=== PATIENT | male | born 1995 | race Caucasian/White ===

== ENCOUNTER 2017-01-05 06:06 | Emergency (ER) | payer BC, OTHER ==
[~2017-01-05] VITALS: Ht 167.6 cm; Wt 70.3 kg
[~2017-01-05 06:06] MED LIST: CLN150C PO; HYDR118S10 PO; OMEP40CA36 PO; ONDA8TAB9 PO; SCR1T PO; TRAM50TA2 PO
--- OUTSIDE RECORDS SUMMARY | 2017-01-05 06:12 | XMS REPORT | Continuity of Care Document ---
Author Author [facility] Organization [facility] Address Unknown Phone Unavailable Allergies Active Description Code Type Severity Reaction Onset Reported/Identified Relationship to Patient Clinical Status Yes codeine [id number] Drug Allergy Unknown RASH 09/27/2013 Yes Penicillins [id number] Drug Allergy Unknown RASH 09/27/2013 Medications Problems Date Dx Coded Attending Type Code Diagnosis Diagnosed By 09/27/2013 YANET MCMAHON MD Ot 577.0 ACUTE PANCREATITIS 09/27/2013 YANET MCMAHON MD Ot 789.06 ABDOMINAL PAIN, EPIGASTRIC 09/29/2013 ANTONIO MAHER Ot 535.50 UNSP GASTRITIS GASTRODUODENITIS W/O ME 09/29/2013 ANTONIO MAHER Ot 789.09 ABDOMINAL PAIN, OTHER SPECIFIED SITE Procedures Results Encounters ACCT No. Visit Date/Time Discharge Status Pt. Type Provider Facility Loc./Unit Complaint [id number] 09/29/2013 12:04:00 2012 17:01:00 DIS Emergency ANTONIO MAHER [facility] ER LOWER ABD PAIN [id number] 09/27/2013 03:19:00 2012 04:39:00 DIS Emergency YANET MCMAHON MD [facility] ER NAUSEA,VOMITING
[2017-01-05] MEDS ORDERED: ONDANSETRON 4 MG (ZOFRAN) ORAL DISSOLVE TAB SL STA (06:17)
[2017-01-05 06:45] LABS: BILIRUBIN,URINE NEGATIVE (NEGATIVE); KETONES,URINE NEGATIVE (NEGATIVE); LEUKOCYTE ESTERASE ,URINE NEGATIVE (NEGATIVE); NITRITE,URINE NEGATIVE (NEGATIVE); PH,URINE 6 (5-9); PROTEIN,URINE 1+ (NEGATIVE); UROBILINOGEN,URINE 1 MG/DL (NORMAL)
[2017-01-05 06:48] LABS: BASOPHILS % (AUTO) 0 % (0-10); EOSINOPHILS # (AUTO) 0.1 10^3/uL (0.0-0.3); EOSINOPHILS % (AUTO) 2 % (0-10); LYMPHOCYTES # (AUTO) 2.9 X 10^3 (1.0-4.0); LYMPHOCYTES % (AUTO) 56 % (12-44); MEAN CORPUSCULAR HEMOGLOBIN 31 PG (25-34); MEAN CORPUSCULAR HGB CONC 34 G/DL (32-36); MEAN CORPUSCULAR VOLUME 89 FL (80-99); MEAN PLATELET VOLUME 9.5 FL (7.4-10.4); MONOCYTES # (AUTO) 0.6 X 10^3 (0.0-1.0); MONOCYTES % (AUTO) 11 % (0-12); NEUTROPHILS # (AUTO) 1.7 X 10^3 (1.8-7.8); NEUTROPHILS % (AUTO) 31 % (42-75); PLATELET COUNT 243 10^3/uL (130-400); RED BLOOD COUNT 4.76 10^6/uL (4.35-5.85); RED CELL DISTRIBUTION WIDTH 12.4 % (10.0-14.5); WHITE BLOOD COUNT 5.3 10^3/uL (4.3-11.0)
--- NOTE | 2017-01-05 06:49 | ED GI ---
General Chief Complaint: Abdominal/GI Problems Stated Complaint: VOMITING Nursing Triage Note: PT TO ED 10 W/ S.O. FOR C/O N/V ONSET X3-4WKS WHEN WAKING ET GETTING READY FOR WORK. STATES "I'M VOMITING UP UNDIGESTED FOOD." NO OTHER C/O VOICED Sepsis Screen: No Definite Risk Source of Information: Patient History of Present Illness Time Seen By Provider: 06:15 Initial Comments PT C/O NAUSEA AND VOMITING EVERY MORNING FOR 3 -4 WEEKS--WHEN HE IS GETTING READY FOR WORK HAS VOMITED/ HAD DRY HEAVES X 3-4 TIMES THIS AM HAS HAD DIARRHEA ONCE OR TWICE IN THE LAST MONTH NO ABDOMINAL PAIN, EXCEPT RIGHT WHEN HE IS VOMITING NO FEVER NO CHANGE IN APPETITE SYMPTOMS ARE NO DIFFERENT TODAY HAS NOT TAKEN ANYTHING FOR SYMPTOMS HAS NOT SOUGHT CARE AT ANY TIME FOR THIS PROBLEM PCP: NONE Allergies and Home Medications Allergies Coded Allergies: Penicillins (Verified Allergy, Unknown, RASH, 09/27/13) codeine (Verified Allergy, Unknown, RASH, 09/27/13) Home Medications Omeprazole 40 Mg Capsule. #60 40 MG PO BID Prescribed by: ANTONIO SUE on 09/29/13 1634 Ondansetron Hcl 8 Mg/Tab Tab.rapdis #10 8 MG PO Q6H PRN PRN NAUSEA/VOMITING Prescribed by: ANTONIO SUE on 09/29/13 1634 Sucralfate 1 Gm/10 Ml Susp 14Days 2 TSP PO ACHS Prescribed by: ANTONIO SUE on 09/29/13 1634 Tramadol Hcl 50 Mg Tablet #14 50 MG PO Q6H PRN PRN PAIN Prescribed by: ANTONIO SUE on 09/29/13 1634 Review of Systems Constitutional: no symptoms reported EENTM: No Symptoms Reported Respiratory: No Symptoms Reported Cardiovascular: No Symptoms Reported Gastrointestinal: See HPI Diarrhea Nausea Other Genitourinary: No Symptoms Reported Musculoskeletal: no symptoms reported Skin: no symptoms reported Psychiatric/Neurological: No Symptoms Reported Endocrine: No Symptoms Reported Hematologic/Lymphatic: No Symptoms Reported Past Qicecbz-Atdqpt-Nouypt Hx Patient Social History Alcohol Use: Rarely Uses Recreational Drug Use: Yes (THC) Smoking Status: Current Everyday Smoker (1 PPD) Recent Foreign Travel: No Contact w/Someone Who Travel: No Recent Infectious Disease Expo: No Recent Hopitalizations: No Surgeries HX Surgeries: Yes (wisdom teeth removed 07/24/13) Respiratory Hx Respiratory Disorders: No Cardiovascular Hx Cardiac Disorders: No Neurological Hx Neurological Disorders: No Genitourinary Hx Genitourinary Disorders: No Gastrointestinal Hx Gastrointestinal Disorders: No Musculoskeletal Hx Musculoskeletal Disorders: No Endocrine Hx Endocrine Disorders: No HEENT HX ENT Disorders: No Cancer Hx Cancer: No Psychosocial Hx Psychiatric Problems: No Integumentary HX Skin/Integumentary Disorder: No Blood Transfusions Hx Blood Disorders: No Family Medical History Significant Family History: No Pertinent Family Hx Physical Exam Vital Signs VS - Last 72 Hours, by Label 01/05/17 06:12 Temp 96.7 Pulse 61 Resp 18 B/P 138/81 Pulse Ox 99 O2 Delivery Room Air Capillary Refill : Less Than 3 Seconds General Appearance: WD/WN no apparent distress HEENT: PERRL/EOMI Neck: normal inspection Respiratory: normal breath sounds no respiratory distress no accessory muscle use Cardiovascular: regular rate, rhythm no murmur Gastrointestinal: normal bowel sounds soft no organomegaly no pulsatile massNo distended, No guarding, No rebound, tenderness (SLIGHT EPIGASTRIC TENDERNESS)No hernia, No mass Extremities: normal inspection Back: normal inspection 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 II-XII nml as tested no motor/sensory deficits alert normal mood/affect oriented x 3 Skin: normal color warm/dry tattoos/piercings (MULTIPLE TATTOOS AND PIERCINGS) Focused Exam Lactic Acid Level Laboratory Tests Test 01/05/17 06:29 Alanine Aminotransferase (ALT/SGPT) 17U/L (0-55) Albumin 4.3G/DL (3.2-4.5) Alkaline Phosphatase 45U/L (40-136) Amylase Level 80U/L (25-125) Anion Gap 11MMOL/L (5-14) Aspartate Amino Transf (AST/SGOT) 19U/L (5-34) BUN/Creatinine Ratio 10 Blood Urea Nitrogen 8MG/DL (7-18) Calcium Level 8.5MG/DL (8.5-10.1) Carbon Dioxide Level 25MMOL/L (21-32) Chloride Level 107MMOL/L (98-107) Creatinine 0.82MG/DL (0.60-1.30) Estimat Glomerular Filtration Rate > 60 Glucose Level 101MG/DL (70-105) Lipase 62U/L (8-78) Potassium Level 4.1MMOL/L (3.6-5.0) Sodium Level 143MMOL/L (135-145) Total Bilirubin 0.6MG/DL (0.1-1.0) Total Protein 6.9G/DL (6.4-8.2) Progress/Results/Core Measures Results/Orders Lab Results Laboratory Tests Test 01/05/17 06:25 01/05/17 06:29 Range/Units Ur Tricyclic Antidepressants Screen NEGATIVE NEGATIVE Urine Amphetamines Screen NEGATIVE NEGATIVE Urine Bacteria FEW H /HPF Urine Barbiturates Screen NEGATIVE NEGATIVE Urine Benzodiazepines Screen NEGATIVE NEGATIVE Urine Bilirubin NEGATIVE NEGATIVE Urine Calcium Oxalate Crystals FEW H /LPF Urine Cannabinoids Screen POSITIVE H NEGATIVE Urine Casts NONE /LPF Urine Clarity CLEAR Urine Cocaine Screen NEGATIVE NEGATIVE Urine Color YELLOW Urine Crystals PRESENT H /LPF Urine Culture Indicated YES Urine Glucose (UA) NEGATIVE NEGATIVE Urine Ketones NEGATIVE NEGATIVE Urine Leukocyte Esterase NEGATIVE NEGATIVE Urine Methadone Screen NEGATIVE NEGATIVE Urine Methamphetamines Screen NEGATIVE NEGATIVE Urine Mucus LARGE H /LPF Urine Nitrite NEGATIVE NEGATIVE Urine Opiates Screen NEGATIVE NEGATIVE Urine Oxycodone Screen NEGATIVE NEGATIVE Urine Phencyclidine Screen NEGATIVE NEGATIVE Urine Propoxyphene Screen NEGATIVE NEGATIVE Urine Protein 1+ H NEGATIVE Urine RBC NONE /HPF Urine RBC (Auto) NEGATIVE NEGATIVE Urine Specific Iva 1.030 H 1.016-1.022 Urine Squamous Epithelial Cells 0-2 /HPF Urine Urobilinogen 1 NORMAL MG/DL Urine WBC 2-5 /HPF Urine pH 6 5-9 Alanine Aminotransferase (ALT/SGPT) 17 0-55 U/L Albumin 4.3 3.2-4.5 G/DL Alkaline Phosphatase 45 40-136 U/L Amylase Level 80 25-125 U/L Anion Gap 11 5-14 MMOL/L Aspartate Amino Transf (AST/SGOT) 19 5-34 U/L BUN/Creatinine Ratio 10 Basophils # (Auto) 0.0 0.0-0.1 10^3/uL Basophils (%) (Auto) 0 0-10 % Blood Urea Nitrogen 8 7-18 MG/DL Calcium Level 8.5 8.5-10.1 MG/DL Carbon Dioxide Level 25 21-32 MMOL/L Chloride Level 107 98-107 MMOL/L Creatinine 0.82 0.60-1.30 MG/DL Eosinophils # (Auto) 0.1 0.0-0.3 10^3/uL Eosinophils (%) (Auto) 2 0-10 % Estimat Glomerular Filtration Rate > 60 Glucose Level 101 70-105 MG/DL Hematocrit 42 40-54 % Hemoglobin 14.5 13.3-17.7 G/DL Lipase 62 8-78 U/L Lymphocytes # (Auto) 2.9 1.0-4.0 X 10^3 Lymphocytes (%) (Auto) 56 H 12-44 % Mean Corpuscular Hemoglobin 31 25-34 PG Mean Corpuscular Hemoglobin Concent 34 32-36 G/DL Mean Corpuscular Volume 89 80-99 FL Mean Platelet Volume 9.5 7.4-10.4 FL Monocytes # (Auto) 0.6 0.0-1.0 X 10^3 Monocytes (%) (Auto) 11 0-12 % Neutrophils # (Auto) 1.7 L 1.8-7.8 X 10^3 Neutrophils (%) (Auto) 31 L 42-75 % Platelet Count 243 130-400 10^3/uL Potassium Level 4.1 3.6-5.0 MMOL/L Red Blood Count 4.76 4.35-5.85 10^6/uL Red Cell Distribution Width 12.4 10.0-14.5 % Serum Alcohol < 10 <10 MG/DL Sodium Level 143 135-145 MMOL/L Total Bilirubin 0.6 0.1-1.0 MG/DL Total Protein 6.9 6.4-8.2 G/DL White Blood Count 5.3 4.3-11.0 10^3/uL My Orders Orders-LEAH NORIEGA DO Drug Screen Stat (Urine) (01/05/17 06:17) Ua Culture If Indicated (01/05/17 06:17) Ondansetron Oral Dissolve Tab (Zofran (01/05/17 06:17) Alcohol (01/05/17 06:20) Amylase (01/05/17 06:20) Cbc With Automated Diff (01/05/17 06:20) Comprehensive Metabolic Panel (01/05/17 06:20) Lipase (01/05/17 06:20) Urine Culture (01/05/17 06:25) Vital Signs/I&O Vital Sign - Last 12Hours 01/05/17 06:12 Temp 96.7 Pulse 61 Resp 18 B/P 138/81 Pulse Ox 99 O2 Delivery Room Air Blood Pressure Mean: 100 Progress Note : Progress Note GIVEN ZOFRAN , NAUSEA RESOLVED, NO VOMITING DURING ER STAY Departure Impression Impression: Primary Impression: Nausea & vomiting Additional Impression: Marijuana use Disposition: 01 HOME, SELF-CARE Condition: Stable Departure-Patient Inst. Referrals: NO,LOCAL PHYSICIAN (PCP/Family) Primary Care Physician Patient Instructions: Marijuana Use and Addiction (DC), Nausea and Vomiting, Adult (DC) Add. Discharge Instructions: NO MARIJUANA OR DRUGS OF ANY KIND NO ALCOHOL NO COFFEE, POP OR TEA CLEAR LIQUIDS--WATER, BROTH, JELLO, GATORADE BRATS DIET--BANANAS, RICE, APPLESAUCE, TOAST, SALTINES FOLLOW UP WITH DR OF CHOICE THIS WEEK FOR FURTHER CARE All discharge instructions reviewed with patient and/or family. Voiced understanding. Scripts Pantoprazole Sodium (Protonix)40 Mg Tablet.dr40 Mg PO DAILY #15 TAB Prov:LEAH NORIEGA DO 01/05/17 Ondansetron (Zofran Odt)4 Mg Tab.rapdis4 Mg PO Q4H Nausea/Vomiting #10 TAB Prov:LEAH NORIEGA DO 01/05/17 LEAH NORIEGA DO Jan 05, 2017 06:49
[2017-01-05 06:56] LABS: CALCIUM OXALATE CRYSTALS,UR FEW /LPF; SQUAMOUS EPITHELIAL CELL,UR 0-2 /HPF
[2017-01-05 07:04] LABS: ALANINE AMINOTRANSFERASE 17 U/L (0-55); ALBUMIN 4.3 G/DL (3.2-4.5); ALCOHOL < 10 MG/DL (<10); AMYLASE 80 U/L (25-125); ANION GAP 11 MMOL/L (5-14); ASPARTATE AMINO TRANSFERASE 19 U/L (5-34); BILIRUBIN,TOTAL 0.6 MG/DL (0.1-1.0); BLOOD UREA NITROGEN 8 MG/DL (7-18); BUN/CREATININE RATIO 10; CALCIUM 8.5 MG/DL (8.5-10.1); CARBON DIOXIDE 25 MMOL/L (21-32); CHLORIDE 107 MMOL/L (98-107); CREATININE SERUM 0.82 MG/DL (0.60-1.30); GFR ESTIMATED > 60; GLUCOSE 101 MG/DL (70-105); LIPASE 62 U/L (8-78); POTASSIUM 4.1 MMOL/L (3.6-5.0); SODIUM 143 MMOL/L (135-145); TOTAL PROTEIN 6.9 G/DL (6.4-8.2)
[2017-01-05] MEDS ORDERED: ONDA4TAB8 PO (07:28)
[2017-01-05] MEDS ORDERED: PANT40TA2 PO (07:29)
[2017-01-05 07:43] VITALS: BP 132/80
== END 2017-01-05 07:43 | disposition home or self-care (01) ==
LOC: EDUNIT# 06:06 → ER 06:08
DX: R11.2 Nausea with vomiting, unspecified (principal); F12.10 Cannabis abuse, uncomplicated
CPT/HCPCS: 36415; 80053; 80306; 80320; 81000; 82150; 83690; 85025; 87088; 99283

== ENCOUNTER 2019-04-20 09:20 | Outpatient (CLI) | payer BC ==
[~2019-04-20] VITALS: Ht 167.6 cm; Wt 64.4 kg
[~2019-04-20 09:20] MED LIST changes: +ONDA4TAB8 PO; +PANT40TA2 PO
[2019-04-20] MEDS ORDERED: RANI150T46 PO (09:35)
[2019-04-22] MEDS ORDERED: PANT40TA2 PO (11:37)
== END 2019-04-20 09:38 | disposition home or self-care (01) ==
LOC: PREOP 09:20
PROVIDERS: ATTEND Surgery
DX: Z01.818 Encounter for other preprocedural examination (principal)

== ENCOUNTER → 2019-04-22 | Day surgery (SDC) | payer BC ==
[~2019-04-22] VITALS: Ht 167.6 cm; Wt 64.4 kg
[~2019-04-22] MED LIST changes: +ACETAMINOPHEN 325 MG TABLET PO PRN; +HURRICAINE EXT TUBE (BENZOCAINE) ONE; +HURRICAINE EXT TUBE (BENZOCAINE) XX PRN; +HYDROcodone/APAP 5 MG/325 MG (LORTAB) TAB PO PRN; +LIDOCAINE JELLY 2% 6 ML SYRINGE MM PRN; +MIDAZOLAM 2 MG/2 ML (VERSED) VIAL IVP ONE; +MIDAZOLAM 2 MG/2 ML (VERSED) VIAL ONE; +NS IV 500 ML 500 ML IV PRN; +ONDANSETRON 4 MG/2 ML (SDV) Z0FRAN IVP PRN; +RANI150T46 PO; +fentaNYL INJECTION 100 MCG/2 ML AMP IVP ONE; +fentaNYL INJECTION 100 MCG/2 ML AMP ONE; +morphine INJ 10 MG/ML 1ML (SYR OR VIAL) IVP PRN
--- OUTSIDE RECORDS SUMMARY | 2019-04-22 11:30 | XMS REPORT | Encounter Summary ---
Author Author [facility] Address Unknown Phone Unavailable Care Team Providers Care Brazer Helper Induction Name Role Phone PCP Unavailable Encounter Details Care Team Description Date Type Department Mercedes Abreu MD [address] [place] [address] 04/08/2013 [facility] HISTORICAL CONVERSION Encounter Social History Date Tobacco Use Types Packs/Day Years Used Never Assessed Sex Assigned at Date Recorded Not on file Industry Job Start Date Occupation Not on file Not on file Not on file Travel End Travel History Travel Start No recent travel history available. documented as of this encounter Plan of Treatment Not on filedocumented as of this encounter Visit Diagnoses Not on filedocumented in this encounter
--- OUTSIDE RECORDS SUMMARY | 2019-04-22 11:30 | XMS REPORT | Clinical Summary ---
Author Author [facility] Address Unknown Phone Unavailable Care Team Providers Care Medical Administrative Technician Name Role Phone PP Unavailable Allergies Comments Active Allergy Reactions Severity Noted Date Anaphylaxis Ceclor Cefaclor Anaphylaxis Keflex Cephalexin Monohydrate Anaphylaxis Codeine Anaphylaxis Erythromycin Base Anaphylaxis Penicillins Anaphylaxis Bactrim Sulfamethoxazole Anaphylaxis Bactrim Trimethoprim Medications End Date Status Medication Sig Dispensed Refills Start Date Active diphenhydramine-acetamino take 2 tablet 0 phen (TYLENOL PM EXTRA by oral route 2 STRENGTH) 25-500 MG TABS every day at bedtime as needed for sleep Active .reconcile (MEDICATION No Sig 1 0 LIST IMPORTED) 3 Active Problems Not on file Family History Medical History Relation Name Comments Other Other Mother - Alive and well Other Other Father - Alive and well Other Other Sister #1 - is Alive, Alive and well Other Other Sister #2 - is Alive, Alive and well Relation Name Status Comments Father Alive Mother Alive Other Other Other Other Social History Date Tobacco Use Types Packs/Day Years Used Never Smoker Sex Assigned at Date Recorded Not on file Industry Job Start Date Occupation Not on file Not on file Not on file Travel End Travel History Travel Start No recent travel history available. Last Filed Vital Signs Reading Time Taken Comments Vital Sign 130/78 01/15/2012 9:44 AM CDT Blood Pressure - - Pulse - - Temperature - - Respiratory Rate - - Oxygen Saturation - - Inhaled Oxygen Concentration 75.1 kg (165 lb 8 oz) 07/06/2012 2:02 PM CDT Weight 166.4 cm (5' 5.5") 07/06/2012 2:02 PM CDT Height 27.12 07/06/2012 2:02 PM CDT Body Mass Index Plan of Treatment Health Maintenance Due Date Last Done Comments Varicella Vaccines (1 of 2007 2 - 13+ 2-dose series) DTaP,Tdap,and Td Vaccines 2013 (1 - Tdap) MMR Vaccines-Adult 2013 Influenza Vaccine (Season 06/19/2019 Ended) Pneumo-Vaccine: 65+Yrs (1 2059 of 2 - PCV13) HPV Vaccines Aged Out No longer eligible based on patient's age to complete this topic Pneumo-Vaccine: Peds (0-5 Aged Out No longer eligible based Yrs) & At-Risk Patients on patient's age to (6-64 Yrs) complete this topic Results Not on filefrom Last 3 Months
--- OUTSIDE RECORDS SUMMARY | 2019-04-22 11:31 | XMS REPORT | Encounter Summary ---
Author Author [facility] Organization [facility] Address Unknown Phone Unavailable Care Team Providers Care Building Maintenance Supervisor Name Role Phone PCP Unavailable Encounter Details Care Team Description Date Type Department Link, Onbase 12/15/2011 [facility] Scans HISTORICAL CONVERSION Social History Date Tobacco Use Types Packs/Day Years Used Never Assessed Sex Assigned at Date Recorded Not on file Industry Job Start Date Occupation Not on file Not on file Not on file Travel End Travel History Travel Start No recent travel history available. documented as of this encounter Progress Notes * Link, Onbase - 03/28/2013 2:58 AM CDT T * Link, Onbase - 03/28/2013 2:58 AM CDT T documented in this encounter Plan of Treatment Not on filedocumented as of this encounter Procedures Comments Procedure Name Priority Date/Time Associated Diagnosis HM IMAGING STUDY 04/05/2013 1:24 AM CDT documented in this encounter Results * IMAGING STUDY (04/05/2013 1:24 AM CDT) Narrative Performed At Procedure Note [facility] - 03/28/2013 2:58 AM CDT documented in this encounter Visit Diagnoses Not on filedocumented in this encounter
--- OUTSIDE RECORDS SUMMARY | 2019-04-22 11:31 | XMS REPORT | Encounter Summary ---
Author Author [facility] Organization [facility] Address Unknown Phone Unavailable Care Team Providers Care Stars Analytical Lead Name Role Phone PCP Unavailable Encounter Details Care Team Description Date Type Department Historical, Roly ProviderMD [address] Address - Needs Updating [place] [id number] 07/06/2012 [facility] HISTORICAL CONVERSION Encounter Social History Date Tobacco Use Types Packs/Day Years Used Never Assessed Sex Assigned at Date Recorded Not on file Industry Job Start Date Occupation Not on file Not on file Not on file Travel End Travel History Travel Start No recent travel history available. documented as of this encounter Last Filed Vital Signs Reading Time Taken Comments Vital Sign - - Blood Pressure - - Pulse - - Temperature - - Respiratory Rate - - Oxygen Saturation - - Inhaled Oxygen Concentration 75.1 kg (165 lb 8 oz) 07/06/2012 2:02 PM CDT Weight 166.4 cm (5' 5.5") 07/06/2012 2:02 PM CDT Height 27.12 07/06/2012 2:02 PM CDT Body Mass Index documented in this encounter Plan of Treatment Not on filedocumented as of this encounter Visit Diagnoses Not on filedocumented in this encounter
--- OUTSIDE RECORDS SUMMARY | 2019-04-22 11:31 | XMS REPORT | Encounter Summary ---
Author Author [facility] Address Unknown Phone Unavailable Care Team Providers Care Ad Clerk Name Role Phone PCP Unavailable Encounter Details Care Team Description Date Type Department Mercedes Abreu MD [address] [place], [place] [id number] 01/27/2013 [facility] Doc HISTORICAL CONVERSION Social History Date Tobacco Use Types Packs/Day Years Used Never Assessed Sex Assigned at Date Recorded Not on file Industry Job Start Date Occupation Not on file Not on file Not on file Travel End Travel History Travel Start No recent travel history available. documented as of this encounter Progress Notes * Mercedes Abreu MD - 02/24/2013 3:20 PM CDT [facility] Phone Note February 24, 2013 Patient: Patrice Campos Radahliamarylou Provider: Mercedes Abreu MD : 1995 C-O PCP: Mercedes Abreu MD Pharmacy: [facility] Work Phone: Pharmacy: Time of call: 02/24/2013 3:19 PM Caller: Mother Reason for call: Medication refill Pain Assessment: Pain assessment is not applicable. Message: AZITHROMYCIN 250 mg take 2 tablet (500MG) by oral route every day fo r 1 day then 1 tablet (250 mg) Qty 6 Call received by: Mercedes Abreu MD. Active Medications Brand Name Generic Name Dose Sig Code Stop date Tylenol Pm Extra Strength Acetaminophen/diphenhydramine 500 Mg-25 Mg take 2 tabl et by oral route every day at bedtime as needed for sleep Allergies Allergy Reaction Comment Cephalexin Monohydrate Anaphylaxis Trimethoprim Anaphylaxis Erythromycin Base Anaphylaxis Sulfamethoxazole Anaphylaxis Codeine Anaphylaxis Cefaclor Anaphylaxis Penicillins Anaphylaxis Physician Disposition: this time Recorded by: Mercedes Abreu MD Written order, Mercedes Abreu MD Medications Prescribed or Refilled Today Brand Name Dose Sig Code Quantity Refills Samples Azithromycin 250 Mg take 2 tablet (500MG) by oral route every day for 1 day th en 1 tablet (250 mg) by oral route once daily for 4 days 6 0 N Action Taken: The prescription was sent to the pharmacy via eRx Mercedes Le MD - 01/31/2013 1:27 PM CDT [facility] Phone Note January 31, 2013 Patient: Patrice Campos Christine Provider: Mercedes Abreu MD : 1995 C-O PCP: Mercedes Abreu MD Pharmacy: [facility] [employer] Work Phone: Pharmacy: Time of call: 01/31/2013 1:25 PM Caller: Mother Reason for call: Question Pain Assessment: Pain assessment is not applicable. Message: wants x-ray report Call received by: Mercedes Abreu MD. Active Medications Brand Name Generic Name Dose Sig Code Stop date Tylenol Pm Extra Strength Acetaminophen/diphenhydramine 500 Mg-25 Mg take 2 tabl et by oral route every day at bedtime as needed for sleep Allergies Allergy Reaction Comment Cephalexin Monohydrate Anaphylaxis Trimethoprim Anaphylaxis Erythromycin Base Anaphylaxis Sulfamethoxazole Anaphylaxis Codeine Anaphylaxis Cefaclor Anaphylaxis Penicillins Anaphylaxis Physician Disposition: negtive and can do activities limited by pain Recorded by: Mercedes Abreu MD Written order, Mercedes Abreu MD Action Taken: All questions were answered, patient / family voiced understandin g YT Mercedes Henderson MD - 01/27/2013 11:47 AM CDT [facility] Phone Note January 27, 2013 Patient: Patrice Andres King Provider: Mercedes Abreu MD : 1995 C-O PCP: Mercedes Abreu MD Pharmacy: [facility] [employer] Work Phone: Pharmacy: Time of call: 01/27/2013 11:45 AM Caller: Mother Reason for call: Question Pain Assessment: (Pain scale used: Ronnell) The patient is having pain in the right hand. It is sharp. The pain occurs con stantly. It's been hurting for one week. He relates the severity as five out o f ten. Message: punched something lasr week and still hurts on later right hand Call received by: Mercedes Abreu MD. Active Medications Brand Name Generic Name Dose Sig Code Stop date Tylenol Pm Extra Strength Acetaminophen/diphenhydramine 500 Mg-25 Mg take 2 tabl et by oral route every day at bedtime as needed for sleep Allergies Allergy Reaction Comment Cephalexin Monohydrate Anaphylaxis Trimethoprim Anaphylaxis Erythromycin Base Anaphylaxis Sulfamethoxazole Anaphylaxis Codeine Anaphylaxis Cefaclor Anaphylaxis Penicillins Anaphylaxis Physician Disposition: x-ray order faxed Recorded by: Mercedes Abreu MD Written order, Mercedes Abreu MD Action Taken: All questions were answered, patient / family voiced elviin g documented in this encounter Plan of Treatment Not on filedocumented as of this encounter Visit Diagnoses Not on filedocumented in this encounter
--- OUTSIDE RECORDS SUMMARY | 2019-04-22 11:31 | XMS REPORT | Encounter Summary ---
Author Author [facility] Organization [facility] Address Unknown Phone Unavailable Care Team Providers Care Curve Saw Operator Name Role Phone PCP Unavailable Encounter Details Care Team Description Date Type Department Historical, Roly ProviderMD [address] Address - Needs Updating [place] [id number] 11/19/2011 [facility] HISTORICAL CONVERSION Encounter Social History Date Tobacco Use Types Packs/Day Years Used Never Assessed Sex Assigned at Date Recorded Not on file Industry Job Start Date Occupation Not on file Not on file Not on file Travel End Travel History Travel Start No recent travel history available. documented as of this encounter Last Filed Vital Signs Reading Time Taken Comments Vital Sign 110/68 11/19/2011 3:23 PM HOME HOSPICE AIDE Blood Pressure - - Pulse - - Temperature - - Respiratory Rate - - Oxygen Saturation - - Inhaled Oxygen Concentration 73 kg (161 lb) 11/19/2011 3:23 PM HOME HOSPICE AIDE Weight 167.6 cm (5' 6") 11/19/2011 3:23 PM HOME HOSPICE AIDE Height 25.99 11/19/2011 3:23 PM HOME HOSPICE AIDE Body Mass Index documented in this encounter Plan of Treatment Not on filedocumented as of this encounter Visit Diagnoses Not on filedocumented in this encounter
--- OUTSIDE RECORDS SUMMARY | 2019-04-22 11:31 | XMS REPORT | Encounter Summary ---
Author Author [facility] Address Unknown Phone Unavailable Care Team Providers Care Casket Assembler Metal Name Role Phone PCP Unavailable Encounter Details Care Team Description Date Type Department Link, Onbase 10/30/2011 [facility] Scans HISTORICAL CONVERSION Social History Date Tobacco Use Types Packs/Day Years Used Never Assessed Sex Assigned at Date Recorded Not on file Industry Job Start Date Occupation Not on file Not on file Not on file Travel End Travel History Travel Start No recent travel history available. documented as of this encounter Progress Notes * Link, Onbase - 03/28/2013 2:53 AM CDT T documented in this encounter Plan of Treatment Not on filedocumented as of this encounter Visit Diagnoses Not on filedocumented in this encounter
--- OUTSIDE RECORDS SUMMARY | 2019-04-22 11:31 | XMS REPORT | Encounter Summary ---
Author Author [facility] Organization [facility] Address Unknown Phone Unavailable Care Team Providers Care Materials Branch Chief Name Role Phone PCP Unavailable Encounter Details Care Team Description Date Type Department Link, Onbase 01/28/2013 [facility] Scans HISTORICAL CONVERSION Social History Date [...] Procedure Name Priority Date/Time Associated Diagnosis HM EXTERNAL XRAY 04/09/2013 8:13 PM CDT HM EXTERNAL XRAY 04/09/2013 8:13 PM CDT documented in this encounter Results * HM EXTERNAL XRAY (04/09/2013 8:13 PM CDT) Narrative Performed At Procedure Note Historical, [facility] Documents - 04/09/2013 6:23 AM CDT * HM EXTERNAL XRAY (04/09/2013 8:13 PM CDT) Narrative Performed At Procedure Note Historical, [employer] Documents - 04/09/2013 6:23 AM CDT documented in this encounter Visit Diagnoses Not on filedocumented in this encounter
--- OUTSIDE RECORDS SUMMARY | 2019-04-22 11:31 | XMS REPORT | Encounter Summary ---
Author Author [facility] Organization [facility] Address Unknown Phone Unavailable Care Team Providers Care Wood Model Maker Name Role Phone PCP Unavailable Encounter Details Care Team Description Date Type Department Aubrey Gutiérrez MD [address] [place] [address] 07/22/2011 [facility] HISTORICAL CONVERSION Social History Date Tobacco Use Types Packs/Day Years Used Never Assessed Sex Assigned at Date Recorded Not on file Industry Job Start Date Occupation Not on file Not on file Not on file Travel End Travel History Travel Start No recent travel history available. documented as of this encounter Progress Notes * Aubrey Gutiérrez MD - 07/22/2011 2:40 PM CDT [facility] Patrice King July 22, 2011 Pain Assessment: (Pain scale used: Tracywski) The patient is having pain in the throat. It is sore. The pain only occurs in the morning. It's been hurting for one week. He relates the severity as five o ut of ten. The patient is having pain in the hand, left, small finger. It aches. The disc omfort occurs before meals. It's been hurting for one day. He relates the ajay rity as eight out of ten. Scheduled Follow-up History of Present Illness This 15 Years 10 Months old male presents today for a regularly scheduled follo w-up appointment. New pt. 1. Hurt left 5th finger last night playing football. Thinks it was bent back. N o numbness or tingling. Has never injured his finger before 2. Right shoulder has always been lax. He has never discussed this with his moth er. He doesn't know if he has ever completely dislocated it. Does not awaken wit h pain in this shoulder. 3. Hx of exercise induced asthma. Past week has been requiring albuterol about e very 4-6 hours. Afebrile. Albuterol controls symptoms well. No CP or SOB. Does n ot feel ill. Asthma 493.90 Past Medical History There is a past medical history of: . No surgeries or hospital admissions Current Medications Allergies Allergy Reaction Comment Penicillins Anaphylaxis Family History The family history was reviewed and updated. Father: Medical conditions: Alive & well Mother: Medical conditions: Alive & well Sister: Medical conditions: Alive & well Sister: Medical conditions: Alive & well Social History Lives in [place]. Lives with mom and stepdad. Stepdad in . Mother has a ian on Physical Exam Vital Signs BP: 101/70 left arm seated Pulse: 66 Respiratory rate: 20 Height: 66.50 inches / 168.91 cm Weight: 162.00 lbs / 73.48 kg BMI: 25.80 kg/m2 Temperature: 98.00 F (36.67 C) orally SaO2: 97 % on room air Constitutional: Well developed, well nourished, in no apparent distress. Well a ppearing. Alert and oriented x3. Non septic appearing. Appears well hydrated. Lymph: No palpable cervical lymphadenopathy. Head: Normocephalic, atraumatic Eyes: EOM's intact Ears: Hearing grossly intact, TM's normal Nose: Nares patent without exudate Mouth: Mucous membranes moist, tongue midline. Oropharnyx non erythematous. Ton sils non edematous. No tonsillar exudate. Neck: No thyromegaly. Supple. No mennigeal signs. Lungs: Clear to auscultation bilaterally, no wheezes, rales or rhonchi. Good a ir exchange. Heart: Regular rate and rhythym without murmur or gallop Abdomen: Soft. Non tender. Non distended. Normal bowel sounds. Vascular: Cap refill in 5th finger normal Extremities: No lower extremity edema. Left 5th finger with tenderness over the proximal phalanx. Some edema. No tenderness at MCP or on the carpals. No pain on the right shoulder. Pulling shoulder with mild force produces a deformity in the shoulder but no clear dislocation Neurologic: No gross motor deficit. Cranial nerves grossly intact upon inspecti on. Sensation in 5th finger normal. Chronic Conditions Summary Asthma 493.90 Today's Assessment and Plan Asthma exacerbation 493.92 - Mild Finger fracture 816.00 - Active Xray per my reading shows an oblique intraarticular fracture of the distal porti on of the left proximal phalanx with mild displace. Neurovascularly intact. 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 The patient's medications, their interactions and possible side effects were rev iewed. Continue current medications and therapy. Call back if you are not better. Call if your temperature is over 100.4 F. All ordered therapeutic and diagnostic tests were discussed as well as typical m edication side effects. The patient understood and voiced agreement with the pl an. 1. Patient is strong, stable, hydrated, alert, warm and perfusing. Breathing com fortably. Treat with steroid burst and continue albuterol prn. Treatment options / additional testing options discussed. Symptomatic treatment with rest/oral hy dration. Acetaminophen and/or ibuprofen as needed for discomfort. Caregiver edu cated on signs of decompensation to watch for. Return or call for new or worseni ng symptoms. Return or call for no improvement in 2 days. Return or call for no resolution in 5 days. All questions answered to caregivers satisfaction. Caregi amalia acknowledges that they understand and agree with this treatment plan. Return if still requiring albuterol daily 2. Referral to ortho for the finger fx. Question if needs surgical fixation. Wi ll see ortho today or tomorrow. Placed in ulnar gutter splint in the meantime. C all or return immediately for numbness or tingling. Will also discuss his should er with ortho New Medications or Refills Brand Name Dose Sig Code Quantity Refills Samples Albuterol Sulfate Hfa 90 Mcg inhale 2 puff by INHALATION route every 4 - 6 hour s as needed 0 N Prednisone 20 Mg take two daily x 5 days 10 0 N electronically signed Aubrey Gutiérrez MD 07/22/2011 2:40 PM * Aubrey Gutiérrez MD - 07/22/2011 12:29 PM CDT [address] [address] July 22, 2011 Certification for Return to School Patrice King has a fractured left 5th finger and should be excused from fo otball practice, and any weights or PE classes until otherwise notified. Thank you, Aubrey Gutiérrez MD * Aubrey Gutiérrez MD - 07/22/2011 12:[address] [facility] [address] [place] [phone] July 22, 2011 Certification for Return to School Patrice King was seen in my office on 07/22/2011. Please excuse him from school missed due to this appointment. Thank you, Aubrey Gutiérrez MD * Aubrey Gutiérrez MD - 07/22/2011 11:[address] [facility] X-Ray Order Form July 22, 2011 Patient: Patrice King : [id number] [facility] Home phone: Gender: [place] [address]- Date of Exam: 07/22/2011 Encounter Nbr: [id number] Ordering Provider: Aubrey Gutiérrez MD [facility] Provider will interpret. History / Symptoms left 5th finger pain Insurance [facility] [employer] [id number] Group number: [id number] The insur heaven is active. Subscriber: Peter King [facility] [id number] The insurance is active. Subscriber: Oksana Hale W X-RAY ORDERS [id number] Finger(s), left Aubrey Gutiérrez MD / completed by: Mariya Lopez TECHNICAL SUPPORT ENGINEER Copy to: Aubrey Gutiérrez MD * Aubrey Gutiérrez MD - 07/22/2011 10:59 AM CDT [facility] Nursing Note for Office Visit July 22, 2011 Patient: Patrice King Provider: Aubrey Gutiérrez MD : 1995 C-O PCP: Aubrey Gutiérrez MD Age: 15 Years 10 Months Pain Assessment: (Pain scale used: Mankowski) The patient is having pain in the throat. It is sore. The pain only occurs in the morning. It's been hurting for one week. He relates the severity as five o ut of ten. The patient is having pain in the hand, left, small finger. It aches. The disc omfort occurs before meals. It's been hurting for one day. He relates the ajay rity as eight out of ten. Nursing Comments: New patient. Patient injured his left hand small finger at t he football game last night. Also has congestion, cough and sore throat. Patient takes an herbal supplement for weight lifting. Vital Signs Height: 66.50 inches / 168.91 cm Weight: 162.00 lbs / 73.48 kg BMI: 25.80 kg/m2 Medications *Medications were reviewed today Allergies *Allergies were reviewed today Allergy Reaction Comment Penicillins Anaphylaxis Influenza vaccine deferred today. Documented by: Mariya Lopez LPN * Aubrey Gutiérrez MD - 07/22/2011 10:59 AM CDT [address] [address] Patrice Trotter dahliamarylou [address] [place] [address]- _ This is your current medication list as of July 22, 2011. Please take this l ist with you when you visit any Health Care Provider. Notify us of any changes at the number above and we will provide you with an updated list. Your Current Medications Brand Name Generic Name Dose Directions Albuterol Sulfate Hfa Albuterol Sulfate 90 Mcg inhale 2 puff by INHALATION route every 4 - 6 hours as needed Allergies Allergen Reaction Comment Penicillins Anaphylaxis Please notify me promptly if this information is not correct. Aubrey Gutiérrez MD documented in this encounter Plan of Treatment Not on filedocumented as of this encounter Visit Diagnoses Not on filedocumented in this encounter
--- OUTSIDE RECORDS SUMMARY | 2019-04-22 11:31 | XMS REPORT | Encounter Summary ---
Author Author [facility] Address Unknown Phone Unavailable Care Team Providers Care Acoustical Material Worker Name Role Phone PCP Unavailable Encounter Details Care Team Description Date Type Department Mercedes Abreu MD [address] [place] [address] [phone] 06/29/2012 [facility] HISTORICAL CONVERSION Social History Date Tobacco Use Types Packs/Day Years Used Never Assessed Sex Assigned at Date Recorded Not on file Industry Job Start Date Occupation Not on file Not on file Not on file Travel End Travel History Travel Start No recent travel history available. documented as of this encounter Progress Notes * Mercedes Abreu MD - 07/06/2012 2:41 PM CDT [facility] Internal Medicine Patrice King July 06, 2012 PCP: Mercedes Abreu MD Pain Assessment: The patient is not in pain. (Pain scale used: Tracywski) Acute Visit History of Present Illness This 16 Years 9 Months old White male non-smoker presents today for an acute vi sit. He has been having trouble sleeping. It started in Feb or so but it has gotten much worse this school year. He has trouble falling asleep at night. He took Ty lenol PM last night but it was hard for him to get up this am. Asthma 493.90 Current Medications Brand Name Generic Name Dose Sig Code Tylenol Pm Extra Strength Acetaminophen/diphenhydramine 500 Mg-25 Mg take 2 tabl et by oral route every day at bedtime as needed for sleep Allergies Allergy Reaction Comment Cephalexin Monohydrate Anaphylaxis Trimethoprim Anaphylaxis Erythromycin Base Anaphylaxis Sulfamethoxazole Anaphylaxis Codeine Anaphylaxis Cefaclor Anaphylaxis Penicillins Anaphylaxis Review of Systems Constitutional: stays awake until 2am and has thoughts swirling in head, tyleno l PM made him drowsy in morning Eyes: No injection or discharge, no change in vision ENT: No nasal congestion, ear pain or sore throat Cardiac: No shortness of breath, no chest pain Respiratory: No cough, wheeze, or difficulty breathing Gastrointestinal: No vomiting, diarrhea or abdominal pain Musculoskeletal: No joint pain or muscle pain, except from football Neurologic: No headaches Physical Exam Vital Signs Height: 65.5 inches / 166.37 cm Weight: 165.5 lbs / 75.07 kg BM I: 27.16 kg/m2 Constitutional: Well developed, well nourished, in no apparent distress Head: Normocephalic, atraumatic Eyes: No conjunctival erythema and no discharge Neck: Supple, no masses, no thyromegaly Lungs: Clear to auscultation bilaterally Heart: S1S2 normal, regular rate and rhythm, no murmurs Extremities: Warm and well perfused Psychiatric: Normal affect, alert, oriented times 3 Chronic Conditions Summary Asthma 493.90 Today's Assessment and Plan Insomnia 780.52 The patient's medications were reviewed. A new medication was ordered. try melatonin over the counter Follow-up: return if signs and symptoms persist electronically signed Mercedes Abreu MD * Mercedes Abreu MD - 07/06/2012 2:28 PM [facility] [address] Summary of Today's Encounter July 06, 2012 Patrice Gillamrylou [address] [place] [address]- _ Today's Assessments Insomnia (780.52) Chronic Conditions Asthma 493.90 Today's Vital Signs Height: 65.5 inches / 166.37 cm Weight: 165.5 lbs / 75.07 kg BM I: 27.16 kg/m2 Plan The patient's medications were reviewed. A new medication was ordered. try melatonin over the counter Follow-up return if signs and symptoms persist Your Current Medications Brand Name Generic Name Dose Directions Tylenol Pm Extra Strength Acetaminophen/diphenhydramine 500 Mg-25 Mg take 2 tabl et by oral route every day at bedtime as needed for sleep Allergies Allergen Reaction Comment Cephalexin Monohydrate Anaphylaxis Trimethoprim Anaphylaxis Erythromycin Base Anaphylaxis Sulfamethoxazole Anaphylaxis Codeine Anaphylaxis Cefaclor Anaphylaxis Penicillins Anaphylaxis Current Lab Results Mercedes Abreu MD 07/06/2012 2:28 PM * Mercedes Abreu MD - 07/06/2012 2:19 PM CDT [facility] Nursing Note for Office Visit July 06, 2012 Patient: Patrice King Provider: Mercedes Abreu MD : 1995 C-O PCP: Mercedes Abreu MD Age: 16 Years 9 Months Pain Assessment: The patient is not in pain. (Pain scale used: Mankowski) Do you have any reason to suspect abuse or neglect in the home? No. Nursing Comments: The patient is here with an acute problem today. He has been having trouble sleeping. It started in Nov or so but it has gotten much worse t his school year. He has trouble falling asleep at night. He took Tylenol PM last night but it was hard for him to get up this am. Vital Signs Height: 65.5 inches / 166.37 cm Weight: 165.5 lbs / 75.07 kg BM I: 27.16 kg/m2 Medications *Medications were reviewed today Brand Name Generic Name Dose Sig Code Tylenol Pm Extra Strength Acetaminophen/diphenhydramine 500 Mg-25 Mg take 2 tabl et by oral route every day at bedtime as needed for sleep Allergies *Allergies were reviewed today Allergy Reaction Comment Cephalexin Monohydrate Anaphylaxis Trimethoprim Anaphylaxis Erythromycin Base Anaphylaxis Sulfamethoxazole Anaphylaxis Codeine Anaphylaxis Cefaclor Anaphylaxis Penicillins Anaphylaxis Influenza vaccine deferred today. Documented by: Radha Mo RN Checked out by: Radha Mo RN * Mercedes Abreu MD - 06/29/2012 10:06 AM CDT [facility] Phone Note June 29, 2012 Patient: Patrice Gillclaricechirag Provider: Mercedes Abreu MD : 1995 C-O PCP: Mercedes Abreu MD Pharmacy: [facility] Work Phone: Pharmacy: Time of call: 06/29/2012 10:05 AM Caller: Mother Reason for call: Medication refill Pain Assessment: Pain assessment is not applicable. Message: AZITHROMYCIN 250 mg take 2 tablet (500MG) by oral route every day fo r 1 day then 1 tablet (250 mg) Qty 6 Last recorded weight: 66 lbs (29.94 kg) on 12/15/2011. Call received by: Mercedes Abreu MD. Allergies Allergy Reaction Comment Penicillins Anaphylaxis Physician Disposition: this time Recorded [...] was sent to the pharmacy via eRx documented in this encounter Plan of Treatment Not on filedocumented as of this encounter Visit Diagnoses Not on filedocumented in this encounter
--- OUTSIDE RECORDS SUMMARY | 2019-04-22 11:31 | XMS REPORT | Encounter Summary ---
Author Author [facility] Address Unknown Phone Unavailable Care Team Providers Care Supervisor Mechanic Boilermaking Name Role Phone PCP Unavailable Encounter Details Care Team Description Date Type Department Link, Onbase 11/10/2011 [facility] HISTORICAL CONVERSION Social History Date [...]
--- OUTSIDE RECORDS SUMMARY | 2019-04-22 11:31 | XMS REPORT | Encounter Summary ---
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 documented as of this encounter Progress Notes * James Martinez MD - 01/15/2012 11:07 AM CDT [address] [address] January 15, 2012 Certification for Return to school Patrice King has been under my care from 01/15/2012, to 01/15/2012, and is able to return to school on 01/15/2012. James Martinez MD * James Martinez MD - 01/15/2012 11:02 AM CDT [facility], [address] [address] Summary of Today's Encounter January 15, 2012 Patrice King [id number] [place] [address]- _ Chronic Conditions Asthma 493.90 Assessment / Plan Bad headache 784.0 He has had occassional mild headaches that do not disrupt his activities. He h ad a >7 day severe headache 1 month ago with a normal exam and CT at that time, with photosensitivity and sonophobia. I suspect it wa a migraine butit oculd hav been some sort of secondary headache; the CT is described as normal and he has a normal exam. Reading difficulty 315.00 Mom cannot describe his difficulties in detail but thinks that they are reading based,. Verruca vulgaris 078.10 we talked aobut compound W and duct tape, do that and get ready for Dr. Abreu to take it off or freeze it in a couple of months. I suspect it is migraine, with the family history. He knows we cannot really give it a specific dx. Dedide what to do in the long run when we know how often and how much of a probl em headache is in him. For the moment sample of two tabs of a triptan, even tho ugh it is off label. Take 1 tab once a day at the onset of headache for up to two days. We consented Relpax. We disucssed how to treat warts but ultimately return to Dr. Abreu for that No labs or other tests. I am not sure how much of a problem his reading difficulty is or anxiety. NOr is it obvious why he is not falling asleep. IF we ahve to do something about sleep, AMITRIPTYLINE would seem like a potentially beneficial antimigraine agent that could make him fall asleep. Return is PRN. ^b^b Today's Vital Signs Weight: 158 lbs (71.67 kg) Height: 65.25 inches (165.74 cm) BMI: 26.13 BP: 130 / 78 Pulse: 71 Temp: 98 F Your Current Medications Allergies Allergen Reaction Comment Penicillins Anaphylaxis Current Lab Results James Martinez MD * James Martinez MD - 01/15/2012 9:55 AM CDT [facility] Pediatric Neurology Consultation January 15, 2012 Patient: Patrice Griffith : 1995 Age: 16 Years 4 Months Referring MD: Mercedes Abreu MD Home: PCP: Mercedes Abreu MD Work: Pharmacy: [facility] Neurologist: James Martinez MD Pharmacy: Dear Mercedes Abreu MD, thank you for asking me to see Patrice King for najma mattson. Pain Assessment: (Pain scale used: Mankowski) The patient is having pain in the head. It aches. The pain occurs intermittent ly. It's been hurting for several months. He relates the severity as six out o f ten. No headache today. Do you have any reason to suspect abuse or neglect in the home? No. Primary Complaint Here for consultation for seizures. Accompanied by mother, Margarette Hale. States has been taking Aleve for small headaches that helps. When referral occured he had a headache for 10 days in a row that was severe. Has not had an episode since. Mom has history of migraines. Sister has migraines. History of Present Illness 16 yr old [place] Rodolfo here for really bad migraines. Dr. Abreu gave him a shot, they had a CT. he still had a headache for a total of 10 full days. They gave him percocet. So it has been a month. Now is tqking no meds. 7-10 bad days, since then a lot of "light" ones. This was different. It hurt to open his eyes or look at anything and loud sounds hu rt his head. Neck did not hurt, no fever or chills, no congestion. No cough. ER Dec 15; he denies nausa and the ROS denies nausea, but the assessment was he had migraine and gave Zofran and ultram and that he had nausea. At the time he h ad a girlfriend and was taking SAT. There was alot of drama. he says he did not complain at all of headaches before a month ago. He could see hear and smell, not congested. "It just hurt when I opened my eyes." As a younger child he did nothave a problem with headaches or stomach aches. He had once joe while "regular headaches" They reolve with Aleve. He owuld play, but it would hurt. he has always had left ptosis. They are bilateral. No t photophobic. He saw a chiropractor about the 11th day. Now he is up until [id number] because he can't sleep. He is not etting the slee p that he needs. They do not generally see him as a worrier except tests, girlf riend problems. Now days, he has Headache every few weeks. Sister, mom and uncle on dads side all have a history of headache or migraine. No prior hx of hospitaliation or surgery, but last fall he broke his left 5th di oumar nd says it has not healed,. He was a normal TAGA VVD infant, product of uncompleicated , normal new born. Immunizatinos are up to date. He swells throat, rash all over for aller gy: Allergic to PCN, Ceclor, Keflex He lives with mom and stepdad. Stepdad is , mom has a salon. Dad sees regularly, lives in [place], and does photoimaging. FM HX: Mom had cervical cancer. Breast Cancer in several relatives and bone cancer in grandfather. HTN and DM in moms side of the family and they get heart disease. Mopm asnd sister get kidney stones. ^b^b Medications *Medications were reviewed today Allergies *Allergies were reviewed today Allergy Reaction Comment Penicillins Anaphylaxis Family History Heart Disease: Yes, see pi Cancer: Yes, see pi Diabetes: Yes, see pi Hypertension: Yes, see pi CVA: No Learning Disorders: No Social History Parents There are smoke detectors in the home. There is a carbon monoxide detector in t he home. No firearms in the home. Lives in [place]. Lives with mom and zulmad. Stepdad in [employer] Mother has a ian on Influenza vaccine, plans to take elsewhere. Neurological ROS Headache: Yes, see pi Nausea or Vomiting: Yes, see pi Diplopia: No Tinnitus: No Dysphagia: No Dysarthria: No Dizziness: No Syncope: No Confusion: No Memory Loss: No Numbness or Tingling: No History of Exposure: No Developmental Delays: No Depression: No Anger or Attitude Changes: No Hyperactivity: No Learning Disorders: No School Difficulties: Yes, He has an IEP "it iw there if he needs it" but he has tutuors and regular classes. Interpersonal Difficulties: No History Problems: No General ROS Fever: No Heent: No Endocrine: No Cardiovascular: No Respiratory: No GI, : No Musculoskeletal: No Lymphatic, Hematologic: No Integumentary: No Weight change: No Vital Signs Weight: 158 lbs (71.67 kg) Height: 65.25 inches (165.74 cm) BMI: 26.13 BP: 130 / 78 Pulse: 71 Temp: 98 F Physical Exam Constitutional: Well developed, well nourished, in no apparent distress Skin: No lesions Lymph: No significant lymphadenopathy Head: Normocephalic, atraumatic. Nontneder , no bruit, tmj normal. Eyes: No conjunctival erythema and no discharge. EOMI VF nl fundi normal. Ears: Normal pinna, auditory canals patent, tympanic membranes clear bilaterall y Nose: Nose symmetric, nares patent. minimal congestion Mouth: Oropharyngeal mucosa clear, normal dentition Neck: Supple, no masses, no thyromegaly Breasts: No masses or tenderness Back: Normal, no scoliosis Lungs: Clear to auscultation bilaterally Heart: S1S2 normal, regular rate and rhythm, no murmurs Abdomen: Non-tender, non-distended, no organomegaly Vascular: Normal pulses Extremities: Warm and well perfused Neurology Exam Gait and station are normal. The patient is alert, oriented to person, place, a nd time, and is a reliable historian. The patient exhibited normal balance. Th e patient's affect is normal at this time. Examination reveals no dysdiadochoki nesia or dysmetria. Neurologic Exam -- Cranial Nerves II Optic Visual acuity is normal and the visual fermin are full to confrontation. III Oculomotor The pupils are equally round, reactive to light and accommodation. The eyelids are normally positioned. The extraocular muscles are intact, and there is no ny stagmus. V Trigeminal The corneal reflex is present bilaterally. Soft touch is intact over the face. Masseter and temporal muscle strength and tone are equal. Abducens Lateral gaze is intact bilaterally. VII Facial Motor function of the face and forehead is intact bilaterally. VIII Acoustic Hearing is grossly intact bilaterally. X Vagus The uvula elevates in the midline XI Spinal Accessory The patient is able to shrug both shoulders and turn the chin to Motor Function - Head Temporal (V) ; normal function Masseter (V) ; normal function Orbicularis Oculi (VII) ; normal function Mouth (VII) ; normal function Soft Palate (VII) ; normal function Sternocleidomastoid (XI) ; normal function Tongue (XII) ; normal function Mild left ptosis. No TMJ dysfunction Motor Function - Upper Extremity Excellent bicpet triceps deltoid and grasp strenght. Motor Function - Lower Extremity Very grceful hoping on either foot, both feet; waqar and recovers, romberg is n egative. Sensory Function Upper Extremity normal light touch , normal proprioception Lower Extremity normal light touch , normal proprioception Reflexes The biceps deep tendon reflexes are 2+ bilaterally. The triceps deep tendon ref lexes are 2+ bilaterally. The brachioradialis deep tendon reflexes are 2+ bilat erally. The patellar reflexes are 2+ bilaterally. The achilles deep tendon ref lexes are 2+ bilaterally. The pupillary reaction to light is present bilaterall y. The Babinski sign is absent bilaterally. Mental Status: General: No apparent distress Patient's appearance is appropriate. Patient is oriented to person, place, time, situation. Behavior is described as unremarkable. Psychomotor behaviors are unremarkable. Speech is appropriate. Patient's affect is appropriate. Patient's mood is euthymic. Memory is intact. Sensorium is clear consciousness. Patient's intellect is very superior. Attitude is cooperative. Attention is gained. Reasoning is excellent. Impulse control is excellent. Thought processes are logical. Thought content is unremarkable. Chronic Conditions Asthma 493.90 Assessment / Plan Bad headache 784.0 He has had occassional mild headaches that do not disrupt his activities. He h ad a >7 day severe headache 1 month ago with a normal exam and CT at that time, with photosensitivity and sonophobia. I suspect it wa a migraine butit oculd hav been some sort of secondary headache; the CT is described as normal and he has a normal exam. Reading difficulty 315.00 Mom cannot describe his difficulties in detail but thinks that they are reading based,. Verruca vulgaris 078.10 we talked aobut compound W and duct tape, do that and get ready for Dr. Abreu to take it off or freeze it in a couple of months. I suspect it is migraine, with the family history. He knows we cannot really give it a specific dx. Dedide what to do in the long run when we know how often and how much of a probl em headache is in him. For the moment sample of two tabs of a triptan, even tho ugh it is off label. Take 1 tab once a day at the onset of headache for up to two days. We consented Relpax. We disucssed how to treat warts but ultimately return to Dr. Abreu for that No labs or other tests. I am not sure how much of a problem his reading difficulty is or anxiety. NOr is it obvious why he is not falling asleep. IF we ahve to do something about sleep, AMITRIPTYLINE would seem like a potentially beneficial antimigraine agent that could make him fall asleep. He says his mind won't shut off. I do not identify anxiety, thought disorder, depression. Return is PRN. ^b^b Documented by: Carine Alexandra LPN on 01/15/2012 at 9:54 AM James Martinez MD cc: Mercedes Abreu MD documented in this encounter Plan of Treatment Not on filedocumented as of this encounter Visit Diagnoses Not on filedocumented in this encounter
--- OUTSIDE RECORDS SUMMARY | 2019-04-22 11:31 | XMS REPORT | Encounter Summary ---
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 documented as of this encounter Last Filed Vital Signs Reading Time Taken Comments Vital Sign 130/72 12/15/2011 10:28 AM [facility] Blood Pressure - - Pulse - - Temperature - - Respiratory Rate - - Oxygen Saturation - - Inhaled Oxygen Concentration 29.9 kg (66 lb) 12/15/2011 10:28 AM [facility] Weight - - Height - - Body Mass Index documented in this encounter Plan of Treatment Not on filedocumented as of this encounter Procedures Comments Procedure Name Priority Date/Time Associated Diagnosis CT HEAD Routine 12/15/2011 documented in this encounter Results * CT HEAD (12/15/2011) CT Head Comment: Updated from [facility] History Specimen Performing Organization Address City/State/Zipcode Phone Number [facility] [address] [facility] [place] [address] documented in this encounter Visit Diagnoses Not on filedocumented in this encounter
--- OUTSIDE RECORDS SUMMARY | 2019-04-22 11:31 | XMS REPORT | Encounter Summary ---
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 documented as of this encounter Progress Notes * Link, Onbase - 03/28/2013 2:48 AM CDT T * Link, [facility]base - 03/28/2013 2:43 AM CDT T * [place] - 03/28/2013 2:43 AM CDT T documented in this encounter Plan of Treatment Not on filedocumented as of this encounter Procedures Comments Procedure Name Priority Date/Time Associated Diagnosis HM EXTERNAL XRAY 07/22/2011 12:00 AM CDT documented in this encounter Results * EXTERNAL XRAY (07/22/2011 12:00 AM CDT) Narrative Performed At Procedure Note [employer] Documents - 05/03/2013 10:13 AM CDT documented in this encounter Visit Diagnoses Not on filedocumented in this encounter
--- OUTSIDE RECORDS SUMMARY | 2019-04-22 11:31 | XMS REPORT | Encounter Summary ---
Author Author [facility] Address Unknown Phone Unavailable Care Team Providers Care Rubber Molder Name Role Phone PCP Unavailable Encounter Details Care Team Description Date Type Department Aubrey Gutiérrez MD [address] [place] [address] 11/19/2011 [facility] HISTORICAL CONVERSION Social History Date Tobacco Use Types Packs/Day Years Used Never Assessed Sex Assigned at Date Recorded Not on file Industry Job Start Date Occupation Not on file Not on file Not on file Travel End Travel History Travel Start No recent travel history available. documented as of this encounter Progress Notes * Mercedes Abreu MD - 12/16/2011 2:48 PM [facility] Phone Note December 16, 2011 Patient: Patrice Campos Radahliamarylou Provider: Mercedes Abreu MD : 1995 C-O PCP: Mercedes Abreu MD Pharmacy: [facility] Work Phone: Pharmacy: Time of call: 12/16/2011 2:29 PM Caller: Mother Reason for call: Progress report Pain Assessment: (Pain scale used: Ronnell) The patient is having pain in the head. It aches. The pain occurs constantly. It's been hurting for five days. He relates the severity as nine out of ten. Message: Mother calls and states that pt. is still having WALDRON. Went to [facility] ER and had tests ran. CT scan normal. They said that it was "just a migrai ne". Gave him tramadol but it is not helping. Is supposed to make a neurology appt. with a Dr. that they gave them a name and number for. Last recorded weight: 66 lbs (29.94 kg) on 12/15/2011. Call received by: Karla Ellis RN. Allergies Allergy Reaction Comment Penicillins Anaphylaxis Physician Disposition: Percocet 5/325 every 6 hours or up to 4 times daily for PRN WALDRON. #20. Recorded by: Karla Ellis RN 12/16/2011 2:41 PM Verbal order, read back and confirmed: Mercedes Abreu MD Medications Prescribed or Refilled Today Brand Name Dose Sig Code Quantity Refills Samples Percocet 5 Mg-325 Mg take 1 tablet by oral route every 6 hours as needed 20 0 N Action Taken: The prescription was left for the patient to potato picker Notification Completed: Karla Ellis RN 12/16/2011 2:41 PM E [employer] * Mercedes Abreu MD - 12/15/2011 11:11 AM E [employer] [facility] Patrice Gillclaricechirag December 15, 2011 PCP: Mercedes Abreu MD Pain Assessment: (Pain scale used: Ronnell) The patient is having pain in the head. It aches. The pain occurs constantly. It's been hurting for four days. He reports the pain is ten out of ten, the wo rst ever. Acute Visit History of Present Illness This 16 Years 3 Months old White male non-smoker presents today for an acute vi sit. Pt. here today for migraine. Has had for 4 days. Nothing seems to help him. Mom reports they have tried Tylenol Migraine, Lortab (not his RX). Feels his p ulse throbbing in his head. Asthma 493.90 Current Medications Brand Name Generic Name Dose Sig Code Zithromax Azithromycin 250 Mg take 2 tablet (500MG) by oral route every day fo r 1 day then 1 tablet (250 mg) by oral route once daily for 4 days Meds Stopped or Refilled Today Stopped today Generic Name Dose Sig Code Stop Date Zithromax Azithromycin 250 Mg take 2 tablet (500MG) by oral route every day fo r 1 day then 1 tablet (250 mg) by oral route once daily for 4 days 12/15/2011 Allergies Allergy Reaction Comment Penicillins Anaphylaxis Social History The patient is single. The patient uses caffeine, about 2 cans of pop per day. The patient does not use alcohol. The patient does not use tobacco. There is a history of passive smoke exposure. There are smoke detectors in the home. Th ere is a carbon monoxide detector in the home. The patient wears seat belts reg ularly. No firearms in the home. Lives in [place]. Lives with mom and stepdad. St epdad in . Mother has a salon Do you have any reason to suspect abuse o r neglect in the home? No. Review of Systems Constitutional: in darkened room with eyes closed Skin: No new rash or changing lesions Lymphatic/Heme: No pallor or easy bruising Eyes: photophobia ENT: No nasal congestion, ear pain or sore throat, noises make his headache wor se Cardiac: No shortness of breath, no chest pain Respiratory: No cough, wheeze, or difficulty breathing Gastrointestinal: nausea this am Genitourinary: No burning or difficulty with urination Musculoskeletal: No joint pain or muscle pain Neurologic: no hx of head trauma Psychiatric: No sad mood or anxiety Physical Exam Vital Signs BP: 130/72 left arm seated Pulse: 72 Height: 166 inches / 421.64 cm Weight: 66 lbs / 29.94 kg BMI: 1.69 kg/m2 Constitutional: in darkrned room Skin: No lesions Head: Normocephalic, atraumatic Eyes: photophobia Ears: Normal pinna, auditory canals patent, tympanic membranes clear bilaterall y Neck: pain in occiput with flexion Lungs: Clear to auscultation bilaterally Heart: S1S2 normal, regular rate and rhythm, no murmurs Chronic Conditions Summary Asthma 493.90 Today's Assessment and Plan Headache 784.0 The patient's medications were reviewed. New Medications Ordered, nubain 10mg and phenergan 25mg im Appointment scheduled with Specialist go to [place] for possible lab and because this is he firs headache like this he has had electronically signed Mercedes Abreu MD 12/15/2011 11:11 AM PH * Mercedes Abreu MD - [facility]/15/2011 11[facility] [address] Summary of Today's Encounter December 15, 2011 Patrice King [address] [place] [address]- _ Today's Assessments Headache (784.0) Chronic Conditions Asthma 493.90 Today's Vital Signs BP: 130/72 left arm seated Pulse: 72 Height: 166 inches / 421.64 cm Weight: 66 lbs / 29.94 kg BMI: 1.69 kg/m2 Plan The patient's medications were reviewed. New Medications Ordered, nubain 10mg and phenergan 25mg im Appointment scheduled with Specialist go to [place] [facility] for possible lab and because this is he firs headache like this he has had Follow-up Your Current Medications Allergies Allergen Reaction Comment Penicillins Anaphylaxis Current Lab Results Mercedes Abreu MD [employer] * Mercedes Abreu MD - 12/15/2011 10:38 AM E [employer] [facility] Note for Office Visit December 15, 2011 Patient: Patrice King Provider: : 1995 C-O PCP: Mercedes Abreu MD Age: 16 Years 3 Months Pain Assessment: (Pain scale used: Mankowski) The patient is having pain in the head. It aches. The pain occurs constantly. It's been hurting for four days. He reports the pain is ten out of ten, the wo rst ever. Do you have any reason to suspect abuse or neglect in the home? No. Nursing Comments: The patient is here with an acute problem today. Pt. here to day for migraine. Has had for 4 days. Nothing seems to help him. Mom reports they have tried Tylenol Migraine, Lortab (not his RX). Feels his pulse throbbin g in his head. Vital Signs BP: 130/72 left arm seated Pulse: 72 Height: 166 inches / 421.64 cm Weight: 66 lbs / 29.94 kg BMI: 1.69 kg/m2 Temperature: 98.3 F (36.83 C) orally Medications *Medications were reviewed today Brand Name Generic Name Dose Sig Code Zithromax Azithromycin 250 Mg take 2 tablet (500MG) by oral route every day fo r 1 day then 1 tablet (250 mg) by oral route once daily for 4 days No Medications Allergies *Allergies were reviewed today Allergy Reaction Comment Penicillins Anaphylaxis Social History The patient is single. The patient uses caffeine, about 2 cans of pop per day. The patient does not use alcohol. The patient does not use tobacco. There is a history of passive smoke exposure. There are smoke detectors in the home. Th ere is a carbon monoxide detector in the home. The patient wears seat belts reg ularly. No firearms in the home. Lives in [place]. Lives with mom and stepdad. St epdad in . Mother has a salon Do you have any reason to suspect abuse o r neglect in the home? No. Influenza vaccine deferred today. Documented by: Karla Ellis RN The patient received the following injections today: Nubain 10 mg IM in the left hip. Phenergan 25 mg IM in the left hip. Checked out by: Karla Ellis RN [employer] * Aubrey Gutiérrez MD - 12/02/2011 11:38 AM E [employer] [facility] Phone Note December 02, 2011 Patient: Patrice Gillclaricechirag Provider: Aubrey Gutiérrez MD : 1995 C-O PCP: Aubrey Gutiérrez MD (use this number) Pharmacy: [facility] (Rx u sed) Work Phone: Pharmacy: Time of call: 12/02/2011 11:36 AM Caller: Mother Reason for call: Question Pain Assessment: Pain assessment is not applicable. Message: Mother called. Patrice was seen 2 weeks ago for an URI and took a Z-brandon . Did get somewhat better, but is not quite over it yet. Wondering if he could get a second round of the Z-brandon? Last recorded weight: 161 lbs (73.03 kg) on 11/19/2011. Call received by: Jill Goel LPN. Active Medications No Medications Allergies Allergy Reaction Comment Penicillins Anaphylaxis Physician Disposition: ok Recorded by: Aubrey Gutiérrez MD Written order, Aubrey Gutiérrez MD Medications Prescribed or Refilled Today Brand Name Dose Sig Code Quantity Refills Samples Zithromax 250 Mg take 2 tablet (500MG) by oral route every day for 1 day then 1 tablet (250 mg) by oral route once daily for 4 days 6 0 N Action Taken: The prescription was sent to the pharmacy via eRx; Advised rhonda coronel to make a f/u appt for Patrice if not improving or getting worse. Notification Completed: Jill RosmeryElisa Goel LPN 12/02/2011 11:52 AM E [employer] * Aubrey Gutiérrez MD - 11/19/2011 4:06 PM E [employer] [facility] [address] [place] [id number] Summary of Today's Encounter November 19, 2011 Patrice Gillclaricechirag [address] [place] [address]- _ Today's Assessments URI (upper respiratory infection) (465.9) - Active Chronic Conditions Asthma 493.90 Today's Vital Signs BP: 110/68 left arm seated Pulse: 64 Respiratory rate: 20 Height: 66 inches / 167.64 cm Weight: 161 lbs / 73.03 kg BMI: 26.03 kg/m2 Temperature: 97.1 F (36.17 C) orally SaO2: 99 % on room air Plan The patient's comorbidities were considered in the [...] and voiced agreement with the pl an. The child is strong, stable, hydrated, alert, warm and perfusing. Breathing comf ortably. Treatment options/ additional testing options discussed. . Treat with oral antib iotic, instructed to complete the full course of the antibiotic. Symptomatic tr eatment with rest/oral hydration. Acetaminophen and/or ibuprofen as needed for discomfort. Caregiver educated on signs of decompensation to watch for. Return or call for n ew or worsening symptoms. Return or call for no improvement in 2 days. Return o r call for no resolution in 5 days. All questions answered to caregiver's satisfaction. Caregiver acknowledges that they understand and agree with this treatment plan. Follow-up return if signs and symptoms persist Your Current Medications Brand Name Generic Name Dose Directions Zithromax Azithromycin 250 Mg take 2 tablet (500MG) by oral route every day fo r 1 day then 1 tablet (250 mg) by oral route once daily for 4 days Allergies Allergen Reaction Comment Penicillins Anaphylaxis Current Lab Results Aubrey Gutiérrez MD E [employer] * Aubrey Gutiérrez MD - 11/19/2011 4:06 PM E [employer] [facility] Patrice King November 19, 2011 PCP: Aubrey Gutiérrez MD Pain Assessment: The patient is not in pain. (Pain scale used: Ronnell) Scheduled Follow-up History of Present Illness This 16 Years 2 Months old White male non-smoker presents today for a regularly scheduled follow-up appointment. CC: Cough for the past 2 weeks. Some sweating at night, but no other fever or ch ills. No wheezing or SOB. Mild ST. No n/v/d. Produces a green sputum at times. M other with similar sx. No ear pain or decreased hearing. No WALDRON or neck pain. Asthma 493.90 Past Medical History There is a past medical history of: . No surgeries or hospital admissions; Left fifth finger proximal phalanx fx- ( 09/2011Dr Geovani); Current Medications Brand Name Generic Name Dose Sig Code Albuterol Sulfate Hfa Albuterol Sulfate 90 Mcg inhale 2 puff by INHALATION route every 4 - 6 hours as needed Prednisone Prednisone 20 Mg take two daily x 5 days Meds Stopped of Refilled Today Stopped today Generic Name Dose Sig Code Stop Date Albuterol Sulfate Hfa Albuterol Sulfate 90 Mcg inhale 2 puff by INHALATION route every 4 - 6 hours as needed 11/19/2011 Prednisone Prednisone 20 Mg take two daily x 5 days 11/19/2011 Allergies Allergy Reaction Comment Penicillins Anaphylaxis Family History Father: Medical conditions: Alive & well Mother: Medical conditions: Alive & well Sister: Medical conditions: Alive & well Sister: Medical conditions: Alive & well Social History The patient is single. The patient uses caffeine, about 2 cans of pop per day. The patient does not use alcohol. The patient does not use tobacco. There is a history of passive smoke exposure. There are smoke detectors in the home. Th ere is a carbon monoxide detector in the home. The patient wears seat belts reg ularly. No firearms in the home. Lives in [place]. Lives with mom and stepdad. St epdad in . Mother has a salon Do you have any reason to suspect abuse o r neglect in the home? No. Physical Exam Vital Signs BP: 110/68 left arm seated Pulse: 64 Respiratory rate: 20 Height: 66 inches / 167.64 cm Weight: 161 lbs / 73.03 kg BMI: 26.03 kg/m2 Temperature: 97.1 F (36.17 C) orally SaO2: 99 % on room air Constitutional: Well developed, [...] Non tender. Non distended. Normal bowel sounds. Extremities: No lower extremity edema Neurologic: No gross motor deficit. Cranial nerves grossly intact upon inspecti on. Chronic Conditions Summary Asthma 493.90 Today's Assessment and Plan URI (upper respiratory infection) 465.9 - Active The patient's comorbidities were considered in the [...] and voiced agreement with the pl an. The child is strong, stable, hydrated, alert, warm and perfusing. Breathing comf ortably. Treatment options/ additional testing options discussed. . Treat with oral antib iotic, instructed to complete the full course of the antibiotic. Symptomatic tr eatment with rest/oral hydration. Acetaminophen and/or ibuprofen as needed for discomfort. Caregiver educated on signs of decompensation to watch for. Return or call for n ew or worsening symptoms. Return or call for no improvement in 2 days. Return o r call for no resolution in 5 days. All questions answered to caregiver's satisfaction. Caregiver acknowledges that they understand and agree with this treatment plan. Follow-up: return if signs and symptoms persist New Medications or Refills Brand Name Dose Sig Code Quantity Refills Samples Zithromax 250 Mg take 2 tablet (500MG) by oral route every day for 1 day then 1 tablet (250 mg) by oral route once daily for 4 days 6 0 N electronically signed Aubrey Gutiérrez MD 11/19/2011 4:06 PM E [employer] * Aubrey Gutiérrez MD - 11/19/2011 3:32 PM [facility] Nursing Note for Office Visit November 19, 2011 Patient: Patrice King Provider: Aubrey Gutiérrez MD : 1995 C-O PCP: Aubrey Gutiérrez MD Age: 16 Years 2 Months Pain Assessment: The patient is not in pain. (Pain scale used: Mankowski) Do you have any reason to suspect abuse or neglect in the home? No. Nursing Comments: c/o cough for the past two weeks, getting worse, throat sore sometimes. Vital Signs BP: 110/68 left arm seated Pulse: 64 Respiratory rate: 20 Height: 66 inches / 167.64 cm Weight: 161 lbs / 73.03 kg BMI: 26.03 kg/m2 Temperature: 97.1 F (36.17 C) orally Medications *Medications were reviewed today Brand Name Generic Name Dose Sig Code Albuterol Sulfate Hfa Albuterol Sulfate 90 Mcg inhale 2 puff by INHALATION route every 4 - 6 hours as needed Prednisone Prednisone 20 Mg take two daily x 5 days No Medications Allergies *Allergies were reviewed today Allergy Reaction Comment Penicillins Anaphylaxis Social History The patient is single. The patient uses caffeine, about 2 cans of pop per day. The patient does not use alcohol. The patient does not use tobacco. There is a history of passive smoke exposure. There are smoke detectors in the home. Th ere is a carbon monoxide detector in the home. The patient wears seat belts reg ularly. No firearms in the home. Lives in [place]. Lives with mom and stepdad. St epdad in . Mother has a salon Do you have any reason to suspect abuse o r neglect in the home? No. Influenza vaccine deferred today. Documented by: Jill Goel LPN Checked out by: Jill Goel LPN [employer] * Aubrey Gutiérrez MD - 11/19/2011 3:30 PM [facility] [phone] [facility] [address] [place] [address] _ This is your current medication list as of November 19, 2011. Please take this list with you when you visit any Health Care Provider. Notify us of any changes at the number above and we will provide you with an updated list. Your Current Medications Allergies Allergen Reaction Comment Penicillins Anaphylaxis Please notify me promptly if this information is not correct. Aubrey Gutiérrez MD E [employer] documented in this encounter Plan of Treatment Not on filedocumented as of this encounter Visit Diagnoses Not on filedocumented in this encounter
--- OUTSIDE RECORDS SUMMARY | 2019-04-22 11:31 | XMS REPORT | Encounter Summary ---
Author Author [facility] Address Unknown Phone Unavailable Care Team Providers Care Speedboat Operator Name Role Phone PCP Unavailable Encounter Details Care Team Description Date Type Department Historical, Roly Provider, [address] Address - Needs Updating [place] [address] 01/15/2012 [facility] HISTORICAL CONVERSION Encounter Social History Date [...] Oxygen Saturation - - Inhaled Oxygen Concentration 71.7 kg (158 lb) 01/15/2012 9:44 AM CDT Weight 165.7 cm (5' 5.25") 01/15/2012 9:44 AM CDT Height 26.09 01/15/2012 9:44 AM CDT Body Mass Index documented in this encounter Plan of Treatment Not on filedocumented as of this encounter Visit Diagnoses Not on filedocumented in this encounter
--- OUTSIDE RECORDS SUMMARY | 2019-04-22 11:31 | XMS REPORT | Encounter Summary ---
Author Author [facility] Address Unknown Phone Unavailable Care Team Providers Care Metal Finisher Name Role Phone PCP Unavailable Encounter Details Care Team Description Date Type Department Link, Onbase 09/18/2011 [facility] HISTORICAL CONVERSION Social History Date [...] Onbase - 03/28/2013 2:48 AM CDT T documented in this encounter Plan of Treatment Not on filedocumented as of this encounter Visit Diagnoses Not on filedocumented in this encounter
--- OUTSIDE RECORDS SUMMARY | 2019-04-22 11:31 | XMS REPORT | Encounter Summary ---
Author Author [facility] Organization [facility] Address Unknown Phone Unavailable Care Team Providers Care Cage Operator Name Role Phone PCP Unavailable Encounter Details Care Team Description Date Type Department Historical, Roly Provider, [address] Address - Needs Updating [place] [id number] 07/22/2011 [facility] HISTORICAL CONVERSION Encounter Social History Date Tobacco Use Types Packs/Day Years Used Never Assessed Sex Assigned at Date Recorded Not on file Industry Job Start Date Occupation Not on file Not on file Not on file Travel End Travel History Travel Start No recent travel history available. documented as of this encounter Last Filed Vital Signs Reading Time Taken Comments Vital Sign 101/70 07/22/2011 10:42 AM CDT Blood Pressure - - Pulse - - Temperature - - Respiratory Rate - - Oxygen Saturation - - Inhaled Oxygen Concentration 73.5 kg (162 lb) 07/22/2011 10:42 AM CDT Weight 168.9 cm (5' 6.5") 07/22/2011 10:42 AM CDT Height 25.76 07/22/2011 10:42 AM CDT Body Mass Index documented in this encounter Plan of Treatment Not on filedocumented as of this encounter Visit Diagnoses Not on filedocumented in this encounter
--- OUTSIDE RECORDS SUMMARY | 2019-04-22 11:32 | XMS REPORT | Continuity of Care Document ---
Author Organization Unknown Address Unknown Allergies Active Description Code Type Severity Reaction Onset Reported/Identified Relationship to Patient Clinical Status Yes ALL ANTIBIOTICS EXCEPT ZITHROMAX ALL ANTIBIOTICS EXCE UNKNOWN Yes PENICILLIN G BENZATHINE PENICILLIN G BENZATH UNKNOWN Yes ALL ANTIBIOTICS EXCEPT ZITHROMAX UNKNOWN UNKNOWN Yes PENICILLIN G BENZATHINE UNKNOWN UNKNOWN Yes codeine [id number] Drug Allergy Unknown RASH 09/27/2013 Yes Penicillins [id number] Drug Allergy Unknown RASH 09/27/2013 Medications There is no data. Problems Date Dx Coded Attending Type Code Diagnosis Diagnosed By 09/27/2013 YANET MCMAHON MD Ot 577.0 ACUTE PANCREATITIS 09/27/2013 YANET MCMAHON MD Ot 789.06 ABDOMINAL PAIN, EPIGASTRIC 09/29/2013 ANTONIO MAHER Ot 535.50 UNSP GASTRITIS GASTRODUODENITIS W/O ME 09/29/2013 ANTONIO MAHER Ot 789.09 ABDOMINAL PAIN, OTHER SPECIFIED SITE 01/05/2017 BRAYDEN NORIEGA DOA Dewey Ot F12.10 CANNABIS ABUSE, UNCOMPLICATED 01/05/2017 BRAYDEN NORIEGA DOA K Ot R11.2 NAUSEA WITH VOMITING, UNSPECIFIED 01/07/2017 LEAH NORIEGA DO Ot F12.10 CANNABIS ABUSE, UNCOMPLICATED 01/07/2017 BRAYDEN NORIEGA DOA K Ot R11.2 NAUSEA WITH VOMITING, UNSPECIFIED 01/07/2017 Brokob, Hedy A 536.2 PERSISTENT VOMITING 01/07/2017 Brokob, Hedy W 789.01 ABDOMINAL PAIN, RIGHT UPPER QUADRANT 01/07/2017 Brokob, Hedy W 789.06 ABDOMINAL PAIN, EPIGASTRIC 01/07/2017 Brokob, Hedy W R10.11 RIGHT UPPER QUADRANT PAIN 01/07/2017 Brokob, Hedy W R10.13 EPIGASTRIC PAIN 01/07/2017 Brokob, Hedy A R11.10 VOMITING, UNSPECIFIED Procedures There is no data. Results Test Result Range Complete urinalysis with reflex to culture - 01/05/17 06:25 Urine color determination YELLOW NRG Urine clarity determination CLEAR NRG Urine pH measurement by test strip 6 5-9 Specific gravity of urine by test strip 1.030 1.016-1.022 Urine protein assay by test strip, semi-quantitative 1+ NEGATIVE Urine glucose detection by automated test strip NEGATIVE NEGATIVE Erythrocytes detection in urine sediment by light microscopy NEGATIVE NEGATIVE Urine ketones detection by automated test strip NEGATIVE NEGATIVE Urine nitrite detection by test strip NEGATIVE NEGATIVE Urine total bilirubin detection by test strip NEGATIVE NEGATIVE Urine urobilinogen measurement by automated test strip (mass/volume) 1 mg/dL NORMAL Urine leukocyte esterase detection by dipstick NEGATIVE NEGATIVE Automated urine sediment erythrocyte count by microscopy (number/high power field) NONE NRG Automated urine sediment leukocyte count by microscopy (number/high power field) [HPF] NRG Bacteria detection in urine sediment by light microscopy FEW NRG Squamous epithelial cells detection in urine sediment by light microscopy 0-2 NRG Crystals detection in urine sediment by light microscopy PRESENT NRG Casts detection in urine sediment by light microscopy NONE NRG Mucus detection in urine sediment by light microscopy LARGE NRG Complete urinalysis with reflex to culture YES NRG Calcium oxalate crystals detection in urine sediment by light microscopy FEW NRG Urine drug screening test - 01/05/17 06:25 Urine phencyclidine detection by screening method NEGATIVE NEGATIVE Urine benzodiazepines detection by screening method NEGATIVE NEGATIVE Urine cocaine detection NEGATIVE NEGATIVE Urine amphetamines detection by screening method NEGATIVE NEGATIVE Urine methamphetamine detection by screening method NEGATIVE NEGATIVE Urine cannabinoids detection by screening method POSITIVE NEGATIVE Urine opiates detection by screening method NEGATIVE NEGATIVE Urine barbiturates detection NEGATIVE NEGATIVE Screening urine tricyclic antidepressants detection NEGATIVE NEGATIVE Urine methadone detection by screening method NEGATIVE NEGATIVE Urine oxycodone detection NEGATIVE NEGATIVE Urine propoxyphene detection NEGATIVE NEGATIVE Bacterial urine culture - 01/05/17 06:25 Bacterial urine culture FOOTNOTE NRG Complete blood count (CBC) with automated white blood cell (WBC) differential - 01/05/17 06:29 Blood leukocytes automated count (number/volume) 5.3 10*3/uL 4.3-11.0 Blood erythrocytes automated count (number/volume) 4.76 10*6/uL 4.35-5.85 Venous blood hemoglobin measurement (mass/volume) 14.5 g/dL 13.3-17.7 Blood hematocrit (volume fraction) 42 % 40-54 Automated erythrocyte mean corpuscular volume 89 [foz_us] 80-99 Automated erythrocyte mean corpuscular hemoglobin (mass per erythrocyte) 31 pg 25-34 Automated erythrocyte mean corpuscular hemoglobin concentration measurement (mass/volume) 34 g/dL 32-36 Automated erythrocyte distribution width ratio 12.4 % 10.0- 14.5 Automated blood platelet count (count/volume) 243 10*3/uL 130-400 Automated blood platelet mean volume measurement 9.5 [foz_us] 7.4-10.4 Automated blood neutrophils/100 leukocytes 31 % 42-75 Automated blood lymphocytes/100 leukocytes 56 % 12-44 Blood monocytes/100 leukocytes 11 % 0-12 Automated blood eosinophils/100 leukocytes 2 % 0-10 Automated blood basophils/100 leukocytes 0 % 0-10 Blood neutrophils automated count (number/volume) 1.7 10*3 1.8-7.8 Blood lymphocytes automated count (number/volume) 2.9 10*3 1.0-4.0 Blood monocytes automated count (number/volume) 0.6 10*3 0.0- 1.0 Automated eosinophil count 0.1 10*3/uL 0.0-0.3 Automated blood basophil count (count/volume) 0.0 10*3/uL 0.0-0.1 Comprehensive metabolic panel - 01/05/17 06:29 Serum or plasma sodium measurement (moles/volume) 143 mmol/L 135-145 Serum or plasma potassium measurement (moles/volume) 4.1 mmol/L 3.6-5.0 Serum or plasma chloride measurement (moles/volume) 107 mmol/L 98-107 Carbon dioxide 25 mmol/L 21-32 Serum or plasma anion gap determination (moles/volume) 11 mmol/L 5-14 Serum or plasma urea nitrogen measurement (mass/volume) 8 mg/dL 7-18 Serum or plasma creatinine measurement (mass/volume) 0.82 mg/dL 0.60-1.30 Serum or plasma urea nitrogen/creatinine mass ratio 10 NRG Serum or plasma creatinine measurement with calculation of estimated glomerular filtration rate > NRG Serum or plasma glucose measurement (mass/volume) 101 mg/dL 70-105 Serum or plasma calcium measurement (mass/volume) 8.5 mg/dL 8.5-10.1 Serum or plasma total bilirubin measurement (mass/volume) 0.6 mg/dL 0.1-1.0 Serum or plasma alkaline phosphatase measurement (enzymatic activity/volume) 45 U/L 40-136 Serum or plasma aspartate aminotransferase measurement (enzymatic activity/volume) 19 U/L 5-34 Serum or plasma alanine aminotransferase measurement (enzymatic activity/volume) 17 U/L 0-55 Serum or plasma protein measurement (mass/volume) 6.9 g/dL 6.4-8.2 Serum or plasma albumin measurement (mass/volume) 4.3 g/dL 3.2-4.5 Serum or plasma amylase measurement (enzymatic activity/volume) - 01/05/17 06:29 Serum or plasma amylase measurement (enzymatic activity/volume) 80 U/L 25-125 Lipase - 01/05/17 06:29 Lipase 62 U/L 8-78 Serum or plasma ethanol measurement (mass/volume) - 01/05/17 06:29 Serum or plasma ethanol measurement (mass/volume) < mg/dL <10 Comprehensive Metabolic Panel - 03/30/19 15:16 Albumin 4.6 g/dL 3.6-5.1 ALP 47 U/L 35-130 ALT 13 U/L 6-45 Anion Gap 12 6-14 AST 19 U/L 2-40 BUN 9 mg/dL 5-25 Calcium 8.7 mg/dL 8.3-10.4 Chloride 105 mmol/L 95-114 CO2 28 mEq/L 22-33 Creat 0.86 mg/dL 0.50-1.50 eGFR 109 mL/min/1.73m2 >59 Globulin 2.8 g/dL 2.3-3.5 Glucose 80 mg/dL 70-110 Osmo 289 280-295 Potassium 4.3 mmol/L 3.5-5.3 Sodium 141 mmol/L 134-148 TBil 1.0 mg/dL 0.2-1.2 TP 7.4 g/dL 6.0-8.3 Encounters ACCT No. Visit Date/Time Discharge Status Pt. Type Provider Facility Loc./Unit Complaint [id number] 03/30/2019 15:16:00 03/30/2019 23:59:00 DIS Outpatient Eva Ricketts [id number] 01/08/2017 10:37:00 01/08/2017 23:59:00 DIS Outpatient Eva Ricketts [id number] 01/07/2017 18:25:00 01/07/2017 20:20:00 DIS Outpatient Hedy Baker [facility] ER [id number] 04/20/2019 09:20:00 04/20/2019 09:38:00 DIS Outpatient KERRI PAZ MD [facility] PREOP EGD [id number] 01/05/2017 06:08:00 01/05/2017 07:43:00 DIS Emergency LEAH NORIEGA DO [facility] ER VOMITING [id number] 09/29/2013 12:04:00 09/29/2013 17:01:00 DIS Emergency ANTONIO MAHER [facility] ER LOWER ABD PAIN [id number] 09/27/2013 03:19:00 09/27/2013 04:39:00 DIS Emergency YANET MCMAHON MD [facility] ER NAUSEA,VOMITING [id number] 04/22/2019 12:45:00 PEN Preadmit KERRI PAZ MD [facility] ENDO N V/REFLUX
--- NOTE | 2019-04-22 11:35 | Progress Note-Pre Operative ---
Pre-Operative Progress Note H&P Reviewed The H&P was reviewed, patient examined and no changes noted. Date Seen by Provider: Apr 22, 2019 Time Seen by Provider: 11:30 Date H&P Reviewed: Apr 22, 2019 Time H&P Reviewed: :30 Pre-Operative Diagnosis: GERD KERRI PAZ MD Apr 22, 2019 11:35
--- NOTE | 2019-04-22 11:35 | Conscious Sedation/ASA ---
Conscious Sedation Pre-Proced Time 11:30 ASA Score 2 For ASA 3 and 4: Consider anesthesia and medical clearance. Also, for patients with a history of failed moderate sedation consider anesthesia. Airway Lungs Heart ASA score ASA 1: a normal healthy patient ASA 2: a patient with a mild systemic disease (mid diabetes, controlled hypertension, obesity ASA 3: a patient with a severe systemic disease that limits activity (angina, COPD, prior Myocardial infarction) ASA 4: a patient with an incapacitating disease that is a constant threat to life (CHF, renal failure) ASA 5: a moribund patient not expected to survive 24 hrs. (ruptured aneurysm) ASA 6: a declared brain- patient whose organs are being harvested. For emergent operations, add the letter E after the classification Mallampati Classification Grade 2 Sedation Plan Analgesia, Amnesia, Plan communicated to team members, Discussed options with patient/fam, Discussed risks with patient/fam The patient is an appropriate candidate to undergo the planned procedure, sedation, and anesthesia. The patient immediately re-assessed prior to indication. KERRI PAZ MD Apr 22, 2019 11:35
--- NOTE | 2019-04-22 11:37 | Discharge Inst-Surgical ---
D/C Lap Instructions-KIDO New, Converted, or Re-Newed RX: RX on Chart Follow Up Activity as tolerated High Fiber Diet 25g or more per day Avoid Alcohol, Caffeine, Spicy [place] and Acid foods. Drink 64 fluid oz or more of fluids per day. Symptoms to Report: Fever over 101 degree F, Nausea/Vomiting If any problems/questions: Contact your physician or go to Emergency Room KERRI PAZ MD Apr 22, 2019 11:37
[2019-04-22 12:01] VITALS: BP 107/68
[2019-04-22 13:10] VITALS: BP 100/57
[2019-04-22 13:40] VITALS: BP 102/57
--- NOTE | 2019-04-22 13:49 | Progress Note-Post Operative ---
Post-Operative Progess Note Surgeon (s)/Repairer Kiln Car (s) Surgeon KERRI PAZ MD Repairer Kiln Car: none Pre-Operative Diagnosis GERD Post-Operative Diagnosis reflux esophagitis(stage 2), small-moderate HH(2cm), mild gastritis. Procedure & Operative Findings Date of Procedure 04/22/19 Procedure Performed/Findings EGD with bx. Anesthesia Type cs Estimated Blood Loss Estimated blood loss (mL): none Specimens/Packing Specimens Removed ge jxn, antrum KERRI PAZ MD Apr 22, 2019 13:49
[2019-04-22 13:50] VITALS: BP 102/57
--- NOTE | 2019-04-22 22:08 | OPERATIVE REPORT ---
DATE OF SERVICE: 04/22/2019 PREOPERATIVE DIAGNOSIS: Gastroesophageal reflux disease, regurgitation, nausea and vomiting. POSTOPERATIVE DIAGNOSES: Reflux esophagitis, stage II; small to moderate size hiatal hernia, 2 cm in size; mild gastritis. PROCEDURE: EGD with biopsy. SURGEON: Kerri Paz MD ANESTHESIA: Conscious sedation. ESTIMATED BLOOD LOSS: Minimal. FINDINGS: Reflux esophagitis, stage II; small to moderate size hiatal hernia, 2 cm in size; mild gastritis. DISPOSITION: The patient tolerated the procedure well. INDICATIONS: The patient is a 23-year-old male who has had issues with epigastric burning sensation as well as crampy pain starting two years ago. He reports that this has become much more significant. He reports that this has progressed to regurgitation as well as gianni episodes of nausea and vomiting. He does have some risk factors for reflux esophagitis as well as peptic ulcer disease, which includes smoking; however, since having this issue, he has refrained from alcohol as well as spicy and acidic foods. DESCRIPTION OF PROCEDURE: The patient was brought to the endoscopy suite, laid in left lateral decubitus position. After adequate IV pain and sedative medications and conscious sedation anesthesia, the mouthpiece was applied. Endoscope was placed in the mouth, visualizing the pharynx and hypopharyngeal region. Vocal cords, epiglottis and vallecula identified and appeared to be normal. Endoscope was gently intubated. The esophageal opening and esophagus insufflated. The endoscope was then advanced to the first, second and third portions of the esophagus at the level of the GE junction, a reflux esophagitis, stage II identified. There were no ulcers or strictures identified in this region. A biopsy was taken with forceps with visualization of good hemostasis. The endoscope was then easily advanced in the stomach and endoscope retroflexed, visualizing a small to moderate size hiatal hernia approximately 2 cm in size. There was a mild severity gastritis. No formal ulcerations, polyps, or any neoplasms. A biopsy was taken of the antrum to rule out H. pylori with visualization of good hemostasis. The endoscope was then advanced to the pylorus into the first and second portion of the duodenum, which appeared normal with no distal obstructions. The endoscope was then slowly withdrawn while taking a second look and suctioning of residual air with no additional findings. The patient tolerated the procedure well. We will start medical therapy with the necessary lifestyle and diet accommodation including small and more frequent meals, avoidance of eating at night as well as head elevation while lying supine. We will again recommend continuation of cessation of smoking, alcohol, spicy, greasy and acidic foods as well as chocolate, peppermint. He also needs to take small and more frequent meals and avoid eating at night. We will start him on Protonix 40 mg daily as well as Carafate 1 gram q.i.d. for the next 2 weeks thenon a p.r.n. basis. If he continues to have symptoms including nausea and vomiting after eating meals, this may be a gallbladder etiology. His mother reports that she had her gallbladder removed at the same age. If this is the case, we will proceed with further workup to evaluate his gallbladder. Job ID: [id number] DocumentID: [id number] Dictated Date: 04/22/2019 13:36:44 Interactive Art Director Date: 04/22/2019 22:08:02 Dictated By: KERRI PAZ MD MTDD
== END ==
LOC: ENDO 11:24
PROVIDERS: ATTEND Surgery
DX: K21.0 Gastro-esophageal reflux disease with esophagitis (principal); K44.9 Diaphragmatic hernia without obstruction or gangrene; K29.50 Unspecified chronic gastritis without bleeding; F17.210 Nicotine dependence, cigarettes, uncomplicated; Z88.0 Allergy status to penicillin

== ENCOUNTER → 2019-04-28 | Outpatient (CLI) | payer BC ==
[~2019-04-28] MED LIST changes: -ACETAMINOPHEN 325 MG TABLET PO PRN; -HURRICAINE EXT TUBE (BENZOCAINE) ONE; -HURRICAINE EXT TUBE (BENZOCAINE) XX PRN; -HYDROcodone/APAP 5 MG/325 MG (LORTAB) TAB PO PRN; -LIDOCAINE JELLY 2% 6 ML SYRINGE MM PRN; -MIDAZOLAM 2 MG/2 ML (VERSED) VIAL IVP ONE; -MIDAZOLAM 2 MG/2 ML (VERSED) VIAL ONE; -NS IV 500 ML 500 ML IV PRN; -ONDANSETRON 4 MG/2 ML (SDV) Z0FRAN IVP PRN; -fentaNYL INJECTION 100 MCG/2 ML AMP IVP ONE; -fentaNYL INJECTION 100 MCG/2 ML AMP ONE; -morphine INJ 10 MG/ML 1ML (SYR OR VIAL) IVP PRN
--- NOTE | 2019-04-28 09:50 | Diagnostic Imaging Report ---
PROCEDURE: US Gallbladder. TECHNIQUE: Multiple real-time grayscale images were obtained over the right upper quadrant in various projections. INDICATION: Right upper quadrant pain. FINDINGS: The liver is normal in size at 16.2 cm. No discrete liver mass is identified. Portal vein is patent and shows normal direction of flow. The gallbladder is without stones or sludge. No wall thickening or biliary ductal dilatation is seen. The pancreas is unremarkable. Aorta is nonaneurysmal. IVC is patent. Right kidney is without evidence of calculi or hydronephrosis. There is no ascites. IMPRESSION: Unremarkable gallbladder ultrasound. Dictated by: Dictated on workstation # [id number]
== END ==
LOC: RAD 07:33
PROVIDERS: ATTEND Surgery
DX: R10.11 Right upper quadrant pain (principal)
CPT/HCPCS: 76705

== ENCOUNTER → 2019-05-16 | Outpatient (CLI) | payer BC ==
[~2019-05-16] MED LIST changes: +CATHETER FLUSH 10 ML SYR IV PRN
--- NOTE | 2019-05-16 12:35 | Diagnostic Imaging Report ---
EXAMINATION: Gallbladder scintigraphy HISTORY: Right upper quadrant pain COMPARISON: None available TECHNIQUE: Anterior scintigraphic imaging of the abdomen was performed after the intravenous administration of 5.46 mCi Tc-99m Choletec. FINDINGS: The upper abdomen was imaged for 120 minutes with the gamma camera. There is prompt homogeneous uptake of radiopharmaceutical by the liver. There is activity in the common duct and gallbladder by 20 minutes. Small bowel activity is seen by 35 minutes. 65 minutes, the patient received ensure to drink. After an additional 60 minutes, the gallbladder ejection fraction was calculated to be 57% which is normal (>35%).. IMPRESSION: 1. Patent common and cystic bile ducts. 2. No gallbladder dysfunction. Dictated by: Dictated on workstation # [id number]
== END ==
LOC: CARD 09:53
PROVIDERS: ATTEND Surgery
DX: K83.5 Biliary cyst (principal)
CPT/HCPCS: 78227